=== PATIENT | female | born 1995 | race Caucasian/White ===

== ENCOUNTER 2021-09-05 11:19 | Emergency (ER) | payer OTHER, SELFPAY ==
--- NOTE | ~2021-09-05 | XR_ITS ---
EXAMINATION: XR chest 1V portable INDICATION: Productive cough TECHNIQUE: Portable AP chest at 1143 hours COMPARISON: None available FINDINGS: There are airspace opacities of the right lung base. No pleural effusion or pneumothorax is identified. The cardiomediastinal silhouette is normal. IMPRESSION: 1. Right basilar airspace opacities, likely pneumonia. Reviewed, dictated and finalized at location A.
[2021-09-05 11:28] VITALS: BP 113/71; PULSE 66; RESP 14; TEMP 36.6; O2SAT 99
--- NOTE | 2021-09-05 11:39 | ED.URI ---
HPI - URI/Sore Throat General Chief Complaint: Upper Respiratory Infection <Eryn Henry PA-C - Last Filed: 09/05/21 12:17> Stated Complaint: cough <JAJA Neal Last Filed: 09/05/21 12:17> Time Seen by Provider: 09/05/21 11:31 <JAJA Neal Last Filed: 09/05/21 12:17> Source: patient <JAJA Neal Last Filed: 09/05/21 12:17> Mode of arrival: ambulatory <JAJA Neal Last Filed: 09/05/21 12:17> Limitations: no limitations <JAJA Neal Last Filed: 09/05/21 12:17> History of Present Illness HPI Narrative: This is a 25-year-old female that presents to the emergency department for cold symptoms present over the last week. Reports initially she had a dry cough and rhinorrhea. She was seen at urgent care and had influenza, strep and COVID screens that were all negative. Reports over the last day or 2 the cough is now productive of yellow sputum. She was told if this happened she should come to the ER for possible antibiotics. She was put on a oral steroid by the urgent care. Denies fever, chest pain, or shortness of breath. <JAJA Neal Last Filed: 09/05/21 12:17> Related Data Allergies/Adverse Reactions: Allergies Allergy/AdvReac Type Severity Reaction Status Date / Time amoxicillin [From Augmentin] Allergy Other Verified 09/05/21 12:03 clavulanic acid Allergy Other Verified 09/05/21 12:03 [From Augmentin] Penicillins Allergy Other Verified 09/05/21 12:03 <JAJA Neal Last Filed: 09/05/21 12:17> Review of Systems Review of Systems: CONSTITUTIONAL: Denies fever ENT: Reports rhinorrhea, congestion. Denies sore throat, or otalgia. CARDIOVASCULAR: Denies chest pain RESPIRATORY: Reports cough. Denies dyspnea. <JAJA Neal Last Filed: 09/05/21 12:17> All systems reviewed & are unremarkable except as noted in HPI and below <Eryn Henry PA-C - Last Filed: 09/05/21 12:17> [facility] Past Medical History Medical History: Medical History (Updated 09/05/21 @ 11:59 by Eryn Henry PA-C) History of depression <Eryn Henry PA-C - Last Filed: 09/05/21 12:17> Social History Social History: Social History (Updated 09/05/21 @ 11:41 by Eryn Henry PA-C) Smoking status: Never smoker <Eryn Henry PA-C - Last Filed: 09/05/21 12:17> Exam Narrative: GENERAL: Well-appearing, well-nourished, and in no acute distress. HEAD: Normocephalic, atraumatic. EYES: EOMI. ENT: Nares clear, no rhinorrhea or epistaxis. Mucous membranes moist. Oropharynx without tonsillar hypertrophy exudate or other lesions. Bilateral TMs pearly olson non-bulging NECK: Supple. No adenopathy or masses. CHEST: Clear to auscultation. No respiratory distress. No wheezes rales or rhonchi HEART: Regular rate and rhythm. No murmur heard. Normal peripheral pulses. EXTREMITIES: Normal range of motion. No edema. SKIN: Warm, dry, no rash. NEURO: No focal deficits. Alert and oriented x3. PSYCH: Normal mood and affect <Eryn Henry PA-C - Last Filed: 09/05/21 12:17> Course Vital Signs Vital signs: Vital Signs Temperature 97.9 F 09/05/21 11:28 Pulse Rate 66 09/05/21 11:28 Respiratory Rate 14 09/05/21 11:28 Blood Pressure 113/71 09/05/21 11:28 Pulse Oximetry 99 09/05/21 11:28 Temperature 97.6 F 09/05/21 12:18 Pulse Rate 72 09/05/21 12:18 Respiratory Rate 16 09/05/21 12:18 Blood Pressure 114/78 09/05/21 12:18 Pulse Oximetry 100 09/05/21 12:18 <Eryn Henry PA-C - Last Filed: 09/05/21 12:17> MDM - URI/Sore Throat MDM Narrative Medical decision making narrative: Patient presents to the emergency department for productive cough. She is afebrile and nontoxic-appearing. Lungs are clear on exam. Chest x-ray does show right basilar airspace opacities, likely pneumonia. Patient's oxygen saturation has remained normal on room air.
[2021-09-05 12:18] VITALS: BP 114/78; PULSE 72; RESP 16; TEMP 36.4; O2SAT 100
== END 2021-09-05 12:30 | disposition home or self-care (01) ==
PROVIDERS: Emergency Provider General Practice; PCP Nurse Practitioner Family
DX: J18.9 Pneumonia, unspecified organism (principal)
CPT/HCPCS: 71045; 99283

== ENCOUNTER → 2021-09-11 11:53 | Outpatient (CLI) | payer OTHER, SELFPAY ==
--- NOTE | ~2021-09-11 | XR_ITS ---
EXAMINATION: XR chest 2V DATE: 09/11/2021 12:11 INDICATION: Pneumonia. TECHNIQUE: Frontal and lateral views of the chest were obtained. COMPARISON: Chest single view 09/05/2021 FINDINGS: The chest demonstrates clear lungs without pneumonia, pleural effusion, or pneumothorax. Th e heart size is normal. Surgical clips in the right upper quadrant are likely from cholecystectomy. IMPRESSION: 1. No acute cardiopulmonary disease. Reviewed, dictated and finalized at location B.
== END ==
PROVIDERS: Visit Provider Nurse Practitioner Family
DX: J18.9 Pneumonia, unspecified organism (principal)
CPT/HCPCS: 71046

== ENCOUNTER 2022-03-15 01:17 | Emergency (ER) | payer OTHER, SELFPAY ==
[2022-03-15 01:21] VITALS: BP 115/70; PULSE 86; RESP 18; TEMP 36.4; O2SAT 100
[2022-03-15 01:58] LABS: Basophils Percent Auto 0.4 % (0.2-1.2); Eosinophils Absolute Auto 0.3 K/mm3 (0-0.3); Eosinophils Percent Auto 3.2 % (0-4.4); Hematocrit 38.1 % (37.0-47.0); Hemoglobin 13.1 g/dL (12.0-15.0); Immature Granulocyte Absolute 0.02 K/mm3 (0.00-0.031); Immature Granulocyte Percent A 0.2 % (0-0.5); Lymphocytes Absolute Auto 3.05 K/mm3 (0.9-3.2); Mean Corpuscular HGB Conc 34.4 g/dl (32-36); Mean Corpuscular Hemoglobin 32.5 pg (26-34); Mean Corpuscular Volume 94.5 fl (80-100); Mean Platelet Volume 11.9 fl (7.4-10.4); Monocytes Absolute Auto 0.5 K/mm3 (0.1-0.6); Monocytes Percent Auto 5.2 % (2.6-8.5); Neutrophils Absolute Auto 5.9 K/mm3 (1.3-6.7); Platelet Count Result 170 k/mm3 (150-375); Red Blood Count 4.03 M/mm3 (4.2-5.4); Red Cell Distribution Width 12.6 % (11.5-14.5); White Blood Count 9.8 K/mm3 (4.5-10.0)
[2022-03-15 04:07] VITALS: BP 98/63; PULSE 79; RESP 17; TEMP 36.8; O2SAT 100
[2022-03-15 04:46] LABS: Add Urine Microscopic? YES; Appearance Urine Clear (Clear); Bilirubin Urine Negative (Negative); Blood Urine 3+ (Negative); Color Urine Yellow (Yellow); Glucose Urine UA Negative (Negative); Ketones Urine Negative (Negative); Leukocyte Esterase Ur Negative LEU/UL (Negative); Mucus Urine Rare /lpf; Nitrate Urine Negative (Negative); Protein Urine Negative (Negative); RBC Urine >75 /hpf (0-2); Specific Grav Ur 1.014 (1.001-1.035); Squamous Epithelial Cell Urine Rare /hpf (Few); WBC Urine 0-3 /hpf
--- NOTE | 2022-03-15 04:51 | ED.GENADULT ---
HPI - General Adult General Chief complaint: Vaginal Bleeding Stated complaint: vaginal bleeding 14 weeks Time Seen by Provider: 03/15/22 04:08 History of Present Illness HPI narrative: This is a 14 week presenting to the ED. last night the patient noticed some whiteness in the vaginal area. When she went to the restroom she noticed some pink tinge to her underwear. She then went back to bed. When she woke this morning again she noticed that there was some spotting in her underwear. She denies any abdominal pain or cramping. She denies any vaginal discharge or urinary symptoms. The patient is concerned she is having a miscarriage. Related Data Home Medications Medication Instructions Recorded Confirmed fluoxetine 10 mg capsule mg 03/15/22 Allergies Allergy/AdvReac Type Severity Reaction Status Date / Time amoxicillin [From Augmentin] Allergy Other Verified 03/15/22 01:23 clavulanic acid Allergy Other Verified 03/15/22 01:23 [From Augmentin] Penicillins Allergy Other Verified 03/15/22 01:23 enoxaparin [From Lovenox] AdvReac Rash Verified 03/15/22 04:33 Review of Systems Review of Systems: CONSTITUTIONAL: Denies night sweats. EYES: No eye pain ENT: Denies rhinorrhea CARDIOVASCULAR: Denies palpitations RESPIRATORY: Denies hemoptysis GASTROINTESTINAL: Denies hematemesis GENITOURINARY: Denies hematuria. SKIN: Denies rash MUSCULOSKELETAL: Denies myalgia. NEUROLOGIC: Denies weakness. PSYCHIATRIC: Denies delusions PMFSH Past Medical History Medical History (Updated 03/15/22 @ 04:57 by Chu Patton MD) delivery delivered History of depression Social History Social History Smoking status: Never smoker Exam Narrative: APPEARANCE: No apparent distress. Head atraumatic. EYES: PERRLA/EOMI, NOSE: Normal no drainage NECK: Supple, Trachea midline RESPIRATORY: CTAB, No increased work of breathing. CARDIOVASCULAR: S1S2 appreciated ABDOMINAL: Soft, nontender, nondistended, MUSCULOSKELETAl: No obvious deformities NEURO: Alert. Moving 4/4 extremities SKIN:: Warm, dry. Normal color PSYCHIATRIC: Normal affect Point of care dumpman ultrasound revealed a fetus inside the uterus. heart rate was approximately 150-180. Pelvic exam revealed a closed cervical os with no ron bleeding in the vaginal vault. Course Vital Signs Vital signs: Vital Signs Temperature 97.5 F L 03/15/22 01:21 Pulse Rate 86 03/15/22 01:21 Respiratory Rate 18 03/15/22 01:21 Blood Pressure 115/70 03/15/22 01:21 Pulse Oximetry 100 03/15/22 01:21 Temperature 98.2 F 03/15/22 04:07 Pulse Rate 79 03/15/22 04:07 Respiratory Rate 17 03/15/22 04:07 Blood Pressure 98/63 L 03/15/22 04:07 Pulse Oximetry 100 03/15/22 04:07 Medical Decision Making MDM Narrative Medical decision making narrative: this is a 14 week woman presenting with very mild vaginal bleeding. Point of care ultrasound revealed a live fetus inside the uterus. Pelvic exam revealed a closed cervical os. Basic lab work was unremarkable. Patient's urinalysis did show greater than 75 red blood cells per high-power field but no evidence of infection. At this time patient has been given return precautions for increased vaginal bleeding and miscarriage. She has been instructed to follow-up with her OBGYN. Vital Signs Vital Signs: Vital Signs Temperature 97.5 F L 03/15/22 01:21 Pulse Rate 86 03/15/22 01:21 Respiratory Rate 18 03/15/22 01:21 Blood Pressure 115/70 03/15/22 01:21 Pulse Oximetry 100 03/15/22 01:21 Temperature 98.2 F 03/15/22 04:07 Pulse Rate 79 03/15/22 04:07 Respiratory Rate 17 03/15/22 04:07 Blood Pressure 98/63 L 03/15/22 04:07 Pulse Oximetry 100 03/15/22 04:07 Lab Data Result diagrams: 03/15/22 01:44 Labs: Lab Results 03/15/22 03/15/22 03/15/22
== END 2022-03-15 05:10 | disposition home or self-care (01) ==
PROVIDERS: Emergency Provider Emergency Medicine; PCP Nurse Practitioner Family
DX: O20.0 Threatened abortion (principal); O99.342 Other mental disorders complicating pregnancy, second trimester; F32.A Depression, unspecified; Z3A.14 14 weeks gestation of pregnancy
CPT/HCPCS: 36415; 81001; 84702; 85025; 85461; 99284

== ENCOUNTER 2022-06-25 18:02 | Observation (INO) | payer OTHER, SELFPAY ==
[2022-06-25] VITALS (40 sets, daily range): BP systolic 106–114; BP diastolic 60–70; PULSE 39–100; TEMP 36.8; O2SAT 86–100; BMI 34.1
--- NOTE | 2022-06-25 19:06 | OBADM ---
This patient, Kaylan Frederick, admitted to the OB room OB Post 117 for observation. Patient/family oriented to hospital policies and general routines including ID bracelet, bed and alarms, visiting hours, pain management, procedures, bathroom and other care routines, personal items, smoking policy, room service/diet, and visiting hours. Patient/Family are encouraged to report perceived risks to care and to ask questions if they do not understand what they are told or what they should do.
[2022-06-25 19:16] LABS: Basophils Percent Auto 0.2 % (0.2-1.2); Eosinophils Percent Auto 0.5 % (0-4.4); Hematocrit 35.2 % (37.0-47.0); Hemoglobin 11.7 g/dL (12.0-15.0); Immature Granulocyte Absolute 0.03 K/mm3 (0.00-0.031); Immature Granulocyte Percent A 0.4 % (0-0.5); Lymphocytes Absolute Auto 1.88 K/mm3 (0.9-3.2); Lymphocytes Percent Auto 23.1 % (18.3-44.2); Mean Corpuscular HGB Conc 33.2 g/dl (32-36); Mean Corpuscular Volume 99.2 fl (80-100); Mean Platelet Volume 11.1 fl (7.4-10.4); Monocytes Absolute Auto 0.4 K/mm3 (0.1-0.6); Monocytes Percent Auto 4.8 % (2.6-8.5); Neutrophils Absolute Auto 5.8 K/mm3 (1.3-6.7); Platelet Count Result 158 k/mm3 (150-375); Red Blood Count 3.55 M/mm3 (4.2-5.4); Red Cell Distribution Width 13.9 % (11.5-14.5); White Blood Count 8.2 K/mm3 (4.5-10.0)
[2022-06-25 19:27] LABS: Alanine Aminotransferase 14 U/L (6-35); Albumin Level 3.3 g/dL (3.5-5.1); Alkaline Phosphatase 85 U/L (38-126); Anion Gap 6 mmol/L (8-16); Aspartate Amino Transferase 29 U/L (14-36); Bilirubin,Total 0.7 mg/dL (0.2-1.3); Blood Urea Nitrogen 8 mg/dL (7-17); Calcium 8.4 mg/dL (8.4-10.2); Carbon Dioxide 24 mmol/L (22-30); Chloride 106 mmol/L (98-107); Estimated CRCL calculation 169 ml/min; Estimated Glomerular Filt Rate > 60; Glucose 76 mg/dL (65-110); Potassium 4.1 mmol/L (3.4-5.0); Sodium 136 mmol/L (137-145); Uric Acid 4.8 mg/dL (2.5-7.5)
[2022-06-25] MEDS: BELLADONNA ALK/PHENOB ELIX 10 ML, MAG HYDROX/ALUMINUM HYD/SIMETH 30 ML, LIDOCAINE HCL 2... PO (19:27)
[2022-06-25 19:34] LABS: Bacteria Urine Trace /hpf; Mucus Urine Rare /lpf; RBC Urine 0-2 /hpf (0-2); Squamous Epithelial Cell Urine Occasional /hpf (Few); WBC Urine 0-3 /hpf (0-3)
[2022-06-25 19:35] LABS: Appearance Urine Clear (Clear); Bilirubin Urine Negative (Negative); Blood Urine Negative (Negative); Color Urine Yellow (Yellow); Glucose Urine UA Negative (Negative); Ketones Urine Trace mg/dL (Negative); Leukocyte Esterase Ur Negative LEU/UL (NEGATIVE); Nitrate Urine Negative (Negative); Protein Urine Negative (Negative)
[2022-06-25 19:36] LABS: Add Urine Microscopic? YES
[2022-06-25 22:52] LABS: Creatinine Urine 64.8 mg/dL
[2022-06-25 23:00] LABS: Total Protein Urine Random < 5 mg/dL; Ur Ttl Prot Creatinine Ratio < 0.08 mg/mg (0-0.20)
--- NOTE | 2022-07-15 11:51 | PM.OBTRLD ---
OB - Triage/Final Diagnosis Visit Information Comments/Additional reasons for admission: I have assessed the risk for this patient, Kaylan Frederick, and determined that she would benefit from observation care. Evaluation Laboratory results: Laboratory Tests 06/25/22 06/25/22 06/25/22 18:49 18:49 18:49 WBC 8.2 RBC 3.55 L Hgb 11.7 L Hct 35.2 L MCV 99.2 MCH 33.0 MCHC 33.2 RDW 13.9 Plt Count 158 MPV 11.1 H Immature Gran % (Auto) 0.4 Neut % (Auto) 71.0 Lymph % (Auto) 23.1 [place] % (Auto) 4.8 Eos % (Auto) 0.5 Baso % (Auto) 0.2 Lymph # (Auto) 1.88 [place] # (Auto) 0.4 Eos # (Auto) 0.0 Baso # (Auto) 0.0 Abs Immat Gran (auto) 0.03 Absolute Neuts (auto) 5.8 Absolute Nucleated RBC 0.0 Nucleated RBC % 0.0 % Immature Plt Fraction 8.0 Sodium 136 L Potassium 4.1 Chloride 106 Carbon Dioxide 24 Anion Gap 6 L BUN 8 Creatinine 0.40 L Estim Creat Clear Calc 169 Estimated GFR > 60 Glucose 76 Uric Acid 4.8 Calcium 8.4 Total Bilirubin 0.7 AST 29 ALT 14 Alkaline Phosphatase 85 Total Protein 6.0 L Albumin 3.3 L Urine Color Yellow Urine Appearance Clear Urine pH 6.0 Ur Specific [place] 1.010 Urine Protein Negative Urine Glucose (UA) Negative Urine Ketones Trace Ur Blood (Man) Negative Urine Nitrate Negative Urine Bilirubin Negative Urine Urobilinogen 2.0 H Ur Leukocyte Esterase Negative Urine RBC 0-2 Urine WBC 0-3 Ur Squamous Epith Cells Occasional Urine Bacteria Trace Urine Mucus Rare U Random Total Protein Urine Creatinine Protein/Creat Ratio 2 06/25/22 06/25/22 18:49 18:52 WBC RBC Hgb Hct MCV MCH MCHC RDW Plt Count MPV Immature Gran % (Auto) Neut % (Auto) Lymph % (Auto) [place] % (Auto) Eos % (Auto) Baso % (Auto) Lymph # (Auto) [place] # (Auto) Eos # (Auto) Baso # (Auto) Abs Immat Gran (auto) Absolute Neuts (auto) Absolute Nucleated RBC Nucleated RBC % % Immature Plt Fraction Sodium Potassium Chloride Carbon Dioxide Anion Gap BUN Creatinine Estim Creat Clear Calc Estimated GFR Glucose Uric Acid Cancelled Calcium Total Bilirubin AST ALT Alkaline Phosphatase Total Protein Albumin Urine Color Urine Appearance Urine pH Ur Specific [place] Urine Protein Urine Glucose (UA) Urine Ketones Ur Blood (Man) Urine Nitrate Urine Bilirubin Urine Urobilinogen Ur Leukocyte Esterase Urine RBC Urine WBC Ur Squamous Epith Cells Urine Bacteria Urine Mucus U Random Total Protein < 5 Urine Creatinine 64.8 Protein/Creat Ratio 2 < 0.08 Final Diagnosis (1) Abdominal pain: Code(s): R10.9 - Unspecified abdominal pain Status: Acute
== END 2022-06-25 21:03 | disposition home or self-care (01) ==
PROVIDERS: Admitting Provider Obstetrics & Gynecology; PCP Nurse Practitioner Family; Visit Provider Obstetrics & Gynecology
DX: O26.893 Other specified pregnancy related conditions, third trimester (principal); R10.9 Unspecified abdominal pain; Z3A.28 28 weeks gestation of pregnancy
CPT/HCPCS: 36415; 80053; 81001; 82570; 84156; 84550; 85025; 85055; 87086; A9270; G0378; G0379

== ENCOUNTER 2022-09-02 10:22 | Outpatient (RCR) | payer OTHER, SELFPAY ==
--- NOTE | ~2022-09-02 | US_ITS ---
EXAMINATION: US OB limited w BPP DATE: 09/02/2022 12:23 CDT INDICATION: Decreased movements. TECHNIQUE: Real-time transabdominal obstetric ultrasound. FINDINGS: No prior studies for comparison. There is a single living fetus in vertex presentation. The placenta is on the left laterally without placenta previa. cardiac activity and movement is noted with a heart rate of 137 beats per minute. A FI is normal measuring 13.3 cm. Biophysical profile: breathin of 2 movement: 2 of 2 tone: 2 of 2 Amniotic flud pocket: 2 of 2 Total score: 8 of 8 IMPRESSION: 1. Single living intrauterine in vertex presentation. 2: Total biophysical profile score of 8/8. 3: Normal CLARITA measures 13.3 cm. Reviewed, dictated and finalized at location B.
[2022-09-02 12:32] VITALS: BP 108/63; PULSE 71
== END 2022-10-19 18:23 | disposition home or self-care (01) ==
LOC: ANHOBOP 10:22
PROVIDERS: PCP Nurse Practitioner Family; Visit Provider Obstetrics & Gynecology
DX: O36.8130 Decreased fetal movements, third trimester, not applicable or unspecified (principal); Z3A.38 38 weeks gestation of pregnancy
CPT/HCPCS: 59025; 76815; 76819

== ENCOUNTER 2022-09-05 09:09 | Outpatient (CLI) | payer OTHER, SELFPAY ==
[2022-09-05 10:49] LABS: Hematocrit 35.8 % (37.0-47.0); Hemoglobin 11.5 g/dL (12.0-15.0); Mean Corpuscular HGB Conc 32.1 g/dl (32-36); Mean Corpuscular Hemoglobin 31.8 pg (26-34); Mean Corpuscular Volume 98.9 fl (80-100); Platelet Count Result 132 k/mm3 (150-375); Red Blood Count 3.62 M/mm3 (4.2-5.4); White Blood Count 6.8 K/mm3 (4.5-10.0)
[2022-09-07 09:40] LABS: Rapid Plasma Reagin Non-Reactive (NonReactive)
== END 2022-09-05 09:10 | disposition home or self-care (01) ==
LOC: ANHLAB 09:11
PROVIDERS: PCP Nurse Practitioner Family; Visit Provider Obstetrics & Gynecology
DX: Z01.818 Encounter for other preprocedural examination (principal)
CPT/HCPCS: 36415; 85027; 86592; 86850; 86900; 86901

== ENCOUNTER 2022-09-07 05:29 | Inpatient (IN) | payer OTHER, SELFPAY ==
[2022-09-07] VITALS (52 sets, daily range): BP systolic 89–116; BP diastolic 43–81; PULSE 57–135; RESP 14–20; TEMP 36.4–36.6; O2SAT 80–100; BMI 36.6
--- NOTE | 2022-09-07 05:55 | LDADM ---
This patient, Kaylan Frederick, was admitted to Labor/Delivery/Recovery 120 on 09/07/22 at 05:29. Plans for labor, pain management and were discussed with patient. Patient/family oriented to hospital policies and general routines including ID bracelet, bed and alarms, visiting hours, pain management, procedures, bathroom and other care routines, personal items, smoking policy, room service/diet and guest tray routines, security routines, and visiting hours. Patient/Family are encouraged to report perceived risks to care and to ask questions if they do not understand what they are told or what they should do. See OBIX for further documentation.
[2022-09-07] MEDS: LACTATED RINGERS 1,000 ML 125 ML IV CONT ×2 (06:15→07:30)
--- NOTE | 2022-09-07 06:49 | P.PNAN_ITS ---
Anes - Initial Pre Proc Eval Procedure: Operation Date: 09/07/22 07:30 Proposed Procedures p Section - Mar Kirk MD Date/Time: 09/07/22 06:49 Surgeon: Mar Kirk MD Pre Op Diagnosis: C/S Patient Data Age: 26 Gender: F Height: 1.55 m Weight: 88 kg Last Vital Signs Pulse 86 09/07/22 06:46 BP 110/72 09/07/22 06:46 Allergies Allergy/AdvReac Type Severity Reaction Status Date / Time amoxicillin [From Augmentin] Allergy Other Verified 08/14/22 12:39 clavulanic acid Allergy Other Verified 08/14/22 12:39 [From Augmentin] Penicillins Allergy Other Verified 08/14/22 12:39 enoxaparin [From Lovenox] AdvReac Rash Verified 08/14/22 12:39 Home Medications Medication Instructions Recorded Confirmed Type albuterol sulfate 90 mcg/actuation 2 inh inhalation Q4-6H PRN 09/05/21 09/02/22 Rx breath activated powder shortness of breath or wheezing #1 inhaler,sensor ea escitalopram oxalate 10 mg tablet 10 mg PO DAILY 08/14/22 09/02/22 History (Lexapro) ferrous sulfate 325 mg (65 mg 325 mg PO DAILY 08/14/22 09/02/22 History iron) tablet prenat.vits,cheri,glf-xbrf-ifjse 1 tablet PO DAILY 08/14/22 09/02/22 History Patient hx anesthesia problems: none Family hx anesthesia problems: none Results Review: All pre-operative results and documents have been reviewed as part of the pre- operative evaluation. [facility] Past Medical History Medical History (Updated 09/07/22 @ 06:49 by Glenn Leigh DO) Asthma delivery delivered History of depression Surgical History Surgical History (Updated 09/07/22 @ 06:49 by Glenn Leigh DO) History of sleeve gastrectomy Family History Family History (Updated 08/14/22 @ 12:42 by Alessia Gan RN) Other Patient denies significant medical history Social History Social History Smoking status: Never smoker Second hand tobacco smoke exposure: No Substance use: never Lack of Transportation: No Lack of Food: Never True Current Housing: I Have Housing Concerned About Future Housing: No Difficulty Paying Gas/Electric Bills: No Difficulty Paying for Meds: No Currently Unemployed: No Education: Grade School Difficulty w/ Childcare or Family Care: No Spiritual care concerns: No Anes - Eval Final PreProcedure Day of Procedure 09/07/22 06:49 Patient weight: obese Heart: regular rate and rhythm Lungs: clear to auscultation and normal air movement Airway: Mallampati scale class II Neurological: alert and oriented Last oral intake: >/= 8 hours ASA classification: III Emergent: no Anesthetic plan: proceed Anesthesia type and monitoring: regional spinal and standard monitoring Results Review: All pre-operative results and documents have been reviewed as part of the pre- operative evaluation. Informed Consent: The patient's anesthetic plan and its attendant risks and benefits were discussed with the patient/family/POA. Questions were solicited and answers provided to the satisfaction of the patient/family/POA.
--- NOTE | 2022-09-07 07:16 | PM.IMHP ---
H&P: HPI History of Present Illness Date/Time: 09/07/22 07:16 Chief Complaint: R CS Narrative: Kaylan is a 26yo at 39.1 for a repeat CS. her last in [place] she had a large wound infection and dehiscence post op. uncomplicated except by depression/anxiety on lexapro, pt wants to increase after delivery. Review of Systems Review of Systems: All systems reviewed & are unremarkable except as noted in HPI and below PMFSH Past Medical History Medical History (Updated 09/07/22 @ 06:49 by Glenn Leigh DO) Asthma delivery delivered History of depression Surgical History Surgical History (Updated 09/07/22 @ 07:19 by Mar Kirk MD) History of sleeve gastrectomy Family History Family History (Updated 08/14/22 @ 12:42 by Alessia Gan RN) Other Patient denies significant medical history Social History Social History Smoking status: Never smoker Second hand tobacco smoke exposure: No Substance use: never Lack of Transportation: No Lack of Food: Never True Current Housing: I Have Housing Concerned About Future Housing: No Difficulty Paying Gas/Electric Bills: No Difficulty Paying for Meds: No Currently Unemployed: No Education: Grade School Difficulty w/ Childcare or Family Care: No Spiritual care concerns: No Meds Home Medications and Allergies Home Medications Medication Instructions Recorded Confirmed Type albuterol sulfate 90 mcg/actuation 2 inh inhalation Q4-6H PRN 09/05/21 09/02/22 Rx breath activated powder shortness of breath or wheezing #1 inhaler,sensor ea escitalopram oxalate 10 mg tablet 10 mg PO DAILY 08/14/22 09/02/22 History (Lexapro) ferrous sulfate 325 mg (65 mg 325 mg PO DAILY 08/14/22 09/02/22 History iron) tablet prenat.vits,cheri,gzf-kghv-xfzhe 1 tablet PO DAILY 08/14/22 09/02/22 History Allergies Allergy/AdvReac Type Severity Reaction Status Date / Time amoxicillin [From Augmentin] Allergy Other Verified 08/14/22 12:39 clavulanic acid Allergy Other Verified 08/14/22 12:39 [From Augmentin] Penicillins Allergy Other Verified 08/14/22 12:39 enoxaparin [From Lovenox] AdvReac Rash Verified 08/14/22 12:39 Vital Signs Vital Signs - 24 hr 09/07/22 06:02 09/07/22 06:16 09/07/22 06:31 Pulse Rate 101 H 88 81 Blood Pressure 112/68 105/68 99/64 L 09/07/22 06:46 09/07/22 07:01 Pulse Rate 86 76 Blood Pressure 110/72 113/61 Exam Const: General: no acute distress Resp: Effort & Inspection: normal respiratory effort Auscultation: clear to auscultation bilaterally Cardio: Rate: regular rate Rhythm: regular rhythm GI: GI Palp: Yes Soft to palpation Extrem: General: normal to inspection Assessment and Plan Assessment and plan (1) History of delivery: Code(s): Z98.891 - History of uterine scar from previous surgery Status: Acute Plan FHT category 1 will proceed with R CS. Pt aware scarring and increased risk of injury to organs with infection last time.
--- NOTE | 2022-09-07 07:27 | WPDHPUPDATE1 ---
History and Physical Update Update Date/Time: 09/07/22 07:27 History and Physical has been reviewed, including an updated exam of the patient. There are NO changes in the patient's condition. Risks, benefits, and alternatives have been discussed and questions answered. Patient agrees to proceed with procedure.
[2022-09-07] MEDS: CLINDAMYCIN 900 MG/D5W 50 ML 900 MG/50 ML PIGGYBACK 50 MG IVPB (08:05)
--- NOTE | 2022-09-07 09:00 | P.PCNOB_ITS ---
OB - Delivery Note Procedure Delivery date: 09/07/22 Procedure: Procedures Operation Date: 09/07/22 07:30 <No data on this case meets the specified criteria> Repeat Low transverse section Events: Previous Delivery Route of delivery: Specimen: Yes (placenta) Quantitative Blood Loss (ml): 215 Anesthesia type: Spinal Disposition: Floor Complications: none Narrative: PreOp Diagnosis: previous CS x2, IUP 39.1 Post Op Diagnosis: same The patient was taken to the OR and received spinal anesthesia. She was placed in dorsal supine position with left lateral tilt. SCDs and pablo were placed. She was prepped and draped in the normal sterile fashion. A Pfannensteil skin incision was made and carried through to the underlying layer of fascia. The fascia was incised in the midline and then extended laterally using Beasley scissors. The muscles were in the midline and the peritoneum was entered bluntly. The peritoneal incision was extended inferiorly and superiorly with care to avoid the bladder. The bladder blade was then inserted, the vesicouterine peritoneum was grasped, incised with Metzenbaum scissors, and a bladder flap created. The bladder blade was reinserted. A low transverse uterine incision was made with a scalpel and extended bluntly. AROM was performed and fluid was noted to be clear. The head was delivered, followed by the remainder of the baby. The baby's oropharynx was suctioned. After 30 seconds, the cord was clamped and cut and the was handed off. Cord blood was obtained and the placenta was then removed manually. The uterus was exteriorized. A moist lap sponge was used to curette the endometrium. The uterine incision was then closed with one layer of 0-Vicryl in a running, locking fashion. Good hemostasis was noted. The posterior cul de sac was irrigated with normal saline and cleared of all clot and debris. The uterus was returned to the abdomen. Both lateral gutters were then irrigated. The rectus muscles were inspected and found to be hemostatic. The fascia was reapproximated using 0-Vicryl in running fashion. The subcutaneous tissue was irrigated with normal saline and made hemostatic with Bovie electrocautery. The subcutaneous tissue was reapproximated with a layer of running 2-0 plain gut. The skin was then closed with absorbable sean. Steri strips and a bandage were applied. The uterus was evacuated. The patient tolerated the procedure very well. All counts were correct. She was taken to the recovery room in good condition. [place] Baby Date of : 09/07/22 Time of : 08:14 Weeks of gestation at delivery: 39 gender: Female Weight (pounds): 6 Weight (ounces): 11 presentation: vertex Placenta delivery description: Manual Removal Cord Vessel Description: 3 Vessels and Delayed Cord Clamping score one minute: 9 score five minutes: 9
[2022-09-07] MEDS: OXYTOCIN 30 UNITS/NS 500 ML 30 UNITS/500 ML BAG 125 UNITS IV CONT (09:50)
[2022-09-07] MEDS: KETOROLAC 30 MG/ML VIAL (*BKC) IV PUSH ×2 (12:22→18:54)
[2022-09-07] MEDS: DEXTROSE 5%/0.45% SOD CHL 1,000 ML 125 ML IV CONT (14:13)
[2022-09-07] MEDS: HYDROcodone/acetaminophen (*CRX) 5-325 MG TABLET 1 TAB PO ×2 (14:59→15:52)
[2022-09-07] MEDS: DOCUSATE SODIUM 100 MG CAPSULE PO (14:59)
[2022-09-07] MEDS: ONDANSETRON INJ 4 MG/2 ML VIAL IV PUSH (15:03)
[2022-09-07] MEDS: HYDROcodone/acetaminophen (*CRX) 10-325 MG TABLET 1 TAB PO (20:16)
[2022-09-07] MEDS: ESCITALOPRAM OXALATE 10 MG TABLET 20 MG PO (20:30)
[2022-09-08] MEDS: HYDROcodone/acetaminophen (*CRX) 10-325 MG TABLET 1 TAB PO ×6 (03:10→22:07)
[2022-09-08] MEDS: KETOROLAC 30 MG/ML VIAL (*BKC) IV PUSH (03:11)
[2022-09-08 03:15] VITALS: BP 112/55; PULSE 67; RESP 16; TEMP 36.4; O2SAT 100
[2022-09-08 04:51] LABS: Basophils Percent Auto 0.3 % (0.2-1.2); Eosinophils Absolute Auto 0.1 K/mm3 (0-0.3); Eosinophils Percent Auto 0.9 % (0-4.4); Hematocrit 31.9 % (37.0-47.0); Hemoglobin 10.3 g/dL (12.0-15.0); Immature Granulocyte Absolute 0.02 K/mm3 (0.00-0.031); Immature Granulocyte Percent A 0.3 % (0-0.5); Lymphocytes Absolute Auto 1.21 K/mm3 (0.9-3.2); Lymphocytes Percent Auto 18.6 % (18.3-44.2); Mean Corpuscular HGB Conc 32.3 g/dl (32-36); Mean Corpuscular Hemoglobin 31.7 pg (26-34); Mean Corpuscular Volume 98.2 fl (80-100); Mean Platelet Volume 11.9 fl (7.4-10.4); Monocytes Absolute Auto 0.5 K/mm3 (0.1-0.6); Monocytes Percent Auto 7.7 % (2.6-8.5); Neutrophils Absolute Auto 4.7 K/mm3 (1.3-6.7); Neutrophils Percent Auto 72.2 % (45.5-73.1); Platelet Count Result 106 k/mm3 (150-375); Red Blood Count 3.25 M/mm3 (4.2-5.4); Red Cell Distribution Width 12.7 % (11.5-14.5); White Blood Count 6.5 K/mm3 (4.5-10.0)
[2022-09-08] MEDS: MULTIVIT/MIN/PREN/FOL AC/IRON TABLET 1 TAB PO (07:32)
[2022-09-08] MEDS: DOCUSATE SODIUM 100 MG CAPSULE PO ×2 (07:32→14:55)
[2022-09-08] MEDS: SIMETHICONE 80 MG TAB.CHEW PO (07:33)
--- NOTE | 2022-09-08 07:49 | PM.OBPNVD ---
OB - PN: Subj Subjective Date/time seen: 09/08/22 07:49 Patient comments: no complaints baby status: doing well [place] feeding status: exclusively breast feeding Narrative: POD 1 from primary CS. Doing well. Normal lochia. Eating, ambulating, pablo out. Struggling with nursing some. OB - PN: Obj Data Labs 09/08/22 04:33 Labs: Laboratory Results - last 24 hr 09/08/22 04:33 WBC 6.5 RBC 3.25 L Hgb 10.3 L Hct 31.9 L MCV 98.2 MCH 31.7 MCHC 32.3 RDW 12.7 Plt Count 106 L MPV 11.9 H Immature Gran % (Auto) 0.3 Neut % (Auto) 72.2 Lymph % (Auto) 18.6 [place] % (Auto) 7.7 Eos % (Auto) 0.9 Baso % (Auto) 0.3 Lymph # (Auto) 1.21 [place] # (Auto) 0.5 Eos # (Auto) 0.1 Baso # (Auto) 0.0 Abs Immat Gran (auto) 0.02 Absolute Neuts (auto) 4.7 Absolute Nucleated RBC 0.0 Nucleated RBC % 0.0 OB - PN A/P Plan day: 1 Plan: routine care Comments: consult today Time Spent With Patient Time: Total time spent is greater than 50% in coordination of care (as documented) at patient's floor/unit and/or counseling patient: Exam Narrative: NAD abdomen soft, appropriately tender, incision bandaged Extremities nontender with 1+ edema
[2022-09-08 07:50] VITALS: BP 94/46; PULSE 71; RESP 16; TEMP 36.9; O2SAT 97
--- NOTE | 2022-09-08 13:45 | PC.NURSE ---
Patient instructed on viewing the discharge video Mother & Baby Care, The First Two Weeks . Patient was given the opportunity and encouraged to ask questions. Patient verbalized understanding of information shared and has been given the mother/baby guide for home reference.
--- NOTE | 2022-09-08 14:11 | PC.NURSE ---
[id number] Introductions were made, then consulted with patient to assess needs related to . Mother led the conversation with her?plans to feed?her infant and the?experience so far. Resources provided for inpatient and outpatient services with the feeding sheet, mom/baby guide and name written on the white board. Mother voiced understanding of information and will call if there is a request for assistance. RN encouraged [id number] and stimulating infant to breastfeed. Reported to the primary RN. [id number] Mother states she independently breastfed her infant on the left breast using the football positioning. Mother verbalizes she is able to independently latch with appropriate positioning/alignment. She denies any nipple discomfort and is responsively . is currently meeting outcomes for weight, output, jaundice and feeding frequencies of 8-12 times in 24 hours. Mother declines any additional assistance/education at this time. Mother is encouraged to call for assistance if her infant doesn?t latch or there is discomfort with latching. Mother voiced understanding of information shared and the mom reminded of the mom/baby guide for an additional resource. Reported to the primary RN.
[2022-09-08 19:00] VITALS: BP 122/77; PULSE 66; RESP 16; TEMP 36.2
[2022-09-08] MEDS: ESCITALOPRAM OXALATE 10 MG TABLET 20 MG PO (19:00)
[2022-09-09] MEDS: HYDROcodone/acetaminophen (*CRX) 10-325 MG TABLET 1 TAB PO ×4 (01:38→21:24)
--- NOTE | 2022-09-09 07:52 | P.PNOB_ITS ---
OB - PN: Subj Subjective Date/time seen: 09/09/22 07:52 Patient comments: incisional pain [place] baby status: nursing well feeding status: exclusively breast feeding Narrative: Nursing going much better but pain much worse. Cannot have ibuprofen. SOme back pain also. OB - PN: Obj Data Labs 09/08/22 04:33 OB - PN A/P Plan day: 2 Plan: routine care Comments: ice to incision, continue norco likely home tomorrow mood good, increased lexapro to 20mg Time Spent With Patient Time: Total time spent is greater than 50% in coordination of care (as documented) at patient's floor/unit and/or counseling patient: Exam Narrative: NAD abdomen soft, appropriately tender, incision CDI Extremities nontender with 1+ edema
[2022-09-09 07:56] VITALS: BP 107/79; PULSE 74; RESP 18; TEMP 36.4; O2SAT 98
[2022-09-09] MEDS: DOCUSATE SODIUM 100 MG CAPSULE PO ×2 (08:00→21:25)
[2022-09-09] MEDS: MULTIVIT/MIN/PREN/FOL AC/IRON TABLET 1 TAB PO (08:00)
[2022-09-09] MEDS: SIMETHICONE 80 MG TAB.CHEW PO (08:00)
--- NOTE | 2022-09-09 08:36 | PC.NURSE ---
On 09/09/22, the student, Rosa Bowden, provided care and completed [employer] documentation on this patient. I have reviewed the student's documentation and agree with the findings.
[2022-09-09 08:45] VITALS: PULSE 74; RESP 18; O2SAT 98
--- NOTE | 2022-09-09 15:41 | PC.NURSE ---
Report from Primary RN this morning that mother is , pumping and supplementing with Enfamil.
[2022-09-09 16:14] VITALS: PULSE 74; RESP 18; O2SAT 98
[2022-09-09 20:00] VITALS: BP 92/42; PULSE 69; RESP 16; TEMP 36.7; O2SAT 98
[2022-09-09] MEDS: ESCITALOPRAM OXALATE 10 MG TABLET 20 MG PO (21:24)
[2022-09-10] MEDS: HYDROcodone/acetaminophen (*CRX) 5-325 MG TABLET 1 TAB PO (01:04)
[2022-09-10] MEDS: HYDROcodone/acetaminophen (*CRX) 10-325 MG TABLET 1 TAB PO ×3 (04:55→13:24)
[2022-09-10 08:00] VITALS: BP 93/57; PULSE 67; RESP 18; TEMP 36.2; O2SAT 98
--- NOTE | 2022-09-10 08:03 | PM.OBPNVD ---
OB - PN: Subj Subjective Date/time seen: 09/10/22 08:03 Patient comments: no complaints, pain well controlled, tolerating diet and flatus present baby status: doing well OB - PN: Obj Data Labs 09/08/22 04:33 OB - PN A/P Assessment and Plan (1) delivery delivered: Code(s): O82 - Encounter for delivery without indication Status: Acute Plan day: 2 Plan: routine care and discharge home (Follow up in 1 week) Time Spent With Patient Time: Total time spent is greater than 50% in coordination of care (as documented) at patient's floor/unit and/or counseling patient: Time with patient: less than 15 minutes Review of Systems Review of Systems: All systems reviewed & are unremarkable except as noted in HPI and below Exam Narrative: Fundus firm. Vaginal flow controlled. Incision dry and intact. Negative homans. No redness, warmth, or pain of lower ext. Const: General: comfortable Chest: Breast/axilla inspection: normal inspection of the breasts Resp: Effort & Inspection: normal respiratory effort Auscultation: clear to auscultation bilaterally Cardio: Rate: regular rate GI: GI Palp: Yes Soft to palpation Psych: Appearance: grossly normal Affect: normal affect Attitude: cooperative Thought content: Yes Normal thought content present Judgement: Good judgement present (Psych)
--- NOTE | 2022-09-10 08:05 | PM.OBDSVD ---
DS: Admitting Diagnosis Discharge Date 09/10/22 Admitting Diagnosis DS: Discharge Diagnosis Discharge Diagnosis (1) delivery delivered: Code(s): O82 - Encounter for delivery without indication Status: Acute OB - DS: Summary OB Procedures : None OB Procedures Intrapartum: OB Procedures: : None Peripartum Data Procedures: Procedures Operation Date: 09/07/22 07:30 Actual Procedure Side Surgeon p Section Mar Kirk MD Time Spent with Patient Time attestation: Total time spent providing and/or coordinating discharge services: Discharge Plan Discharge Attending physician on discharge: Mar Kirk Discharging Clinician: Mar Kirk Anticipated Discharge Date/Time: 09/10/22 07:58 Patient Disposition: Home, Self-Care Activity: may shower, may drive after 2 weeks and pelvic rest Diet: regular Discharge Instructions: Education: Mom and Baby Guide Given to: Mother Follow-Up: Call your delivering provider's office for an appointment to be seen in: 1 Week Mom and baby should come to the [facility] for the follow-up appointment. Appointment Date/Time: September 11, 2022 at 10:00 am What to expect at your follow-up visit: Blood Pressure Check Physical Assessment Call [phone] if you are unable to keep your appointment time. BREAST CARE: * Wear a snug supportive bra. * For engorgement discomfort: Breast Feeding: * Apply warm moist washcloths * Express milk as needed to relieve engorgement * Wear loose clothing Bottle Feeding: * May apply ice packs * For sore nipples: * Identify correct latch-on * Apply warm moist washcloths before and after nursing * Air dry nipples after nursing * May apply Lansinoh cream to nipples ABDOMINAL INCISION: (if applicable) * Do NOT use lotions for powders on your incision * When showering, allow soap and water to run over the incision, gently wash incision *Dry incision thoroughly with a clean dry towel EPISIOTOMY/PERINEAL CARE: * Until bleeding stops, use your flower bottle after urinating * Change your pad frequently throughout the day * No tub baths until seen by your physician - You may shower ACTIVITY: * Rest as much as possible. * Do not exercise or lift anything heavier than your baby (such as laundry or other children.) for about two weeks. * Avoid stairs or driving as much as possible for 2 weeks or while taking narcotic pain medication. * Do not put anything into the vagina. No douching, tampons, or sexual activity until seen by physician. NOTIFY PHYSICIAN IF YOU HAVE ANY QUESTIONS OR IF ANY OF THE FOLLOWING SYMPTOMS OCCUR: * If your incision becomes red, swollen, or more painful than what you have experienced in the hospital. * If your vaginal bleeding becomes foul smelling. * If your vaginal bleeding becomes more heavy than a period or if your bleeding changes from pink to bright red. However, you may pass an occasional walnut-sized clot once or twice for the first week . * If you experience a sharp, shooting pain in your calves. * If you discover a hard, reddened area on your breast or if you experience flu-like symptoms. DIET: * Eat regular, well-balanced meals. * Drink plenty of fluids daily. If , drink to thirst. Stand Alone Forms: General Discharge Information Follow-up/Referrals: Mar Kirk MD [Physician] - 1 Week Discharge Medications: New docusate sodium 100 mg Capsule 100 mg PO BID PRN (Reason: constipation) Qty: 60 0RF escitalopram oxalate 10 mg Tablet 20 mg PO QHS Qty: 30 4RF oxycodone-acetaminophen [Percocet] 5-325 mg tablet 1 tablet PO Q4H PRN (Reason: pain) Qty: 40 0RF Continued albuterol sulfate 90 mcg/actuation aero powdr breath act w/sensor 2 inh inhalation Q4-6H PRN (Reason: carlos
[2022-09-10] MEDS: MULTIVIT/MIN/PREN/FOL AC/IRON TABLET 1 TAB PO (09:40)
[2022-09-10] MEDS: DOCUSATE SODIUM 100 MG CAPSULE PO (09:40)
[2022-09-10] MEDS: SIMETHICONE 80 MG TAB.CHEW PO ×2 (09:40→13:24)
[2022-09-10 13:27] VITALS: PULSE 67; RESP 18; O2SAT 98
--- NOTE | 2022-09-10 14:32 | PC.NURSE ---
[id number] Mother led the conversation with her experience and plan to feed her so far and demonstrates her ability to independently latch optimally without discomfort. Reminded mother to use good handwashing technique to prevent infection. Mother is feeding appropriately for growth of infant and understands stimulating infant to eat if needed. has had appropriate feedings in the last 24 hours meets the outcomes for weight, output and jaundice at this time. Mother states she is confident to continue effectively breastfeed, pump when needed and supplement as she desires to feed her at home, when to call for assistance and denies any additional assistance or education at this time. Reinforced understanding of milk production, transition of milk, signs of adequate intake, transition of stool, prevention/relief of engorgement, prevention/response r/t mastitis, prevention of oversupply, responsive watching for feeding cues, the different methods of stimulating infant to breastfeed 2-3 hours after the start of the last feeding, community resources, and when to call a provider using the resource of the mom and baby guide. Mother voiced understanding of the education shared. Reported to the primary RN.
== END 2022-09-10 14:00 | disposition home or self-care (01) | DRG 540 ==
LOC: ANHLDR 05:32 → ANHOB2 11:26
PROVIDERS: Admitting Provider Obstetrics & Gynecology; PCP Nurse Practitioner Family; Visit Provider Obstetrics & Gynecology
PROC: 10D00Z1 Extraction of Products of Conception, Low, Open Approach (ICD-10-PCS; CPT 59514; principal; 2022-09-07 07:30)
DX: O34.219 Maternal care for unspecified type scar from previous cesarean delivery (principal); F32.A Depression, unspecified; Z37.0 Single live birth; O99.344 Other mental disorders complicating childbirth; F41.9 Anxiety disorder, unspecified; O99.844 Bariatric surgery status complicating childbirth; Z3A.39 39 weeks gestation of pregnancy; J45.909 Unspecified asthma, uncomplicated; O99.52 Diseases of the respiratory system complicating childbirth
CPT/HCPCS: 36415; 85025; A9270; J0131; J0456; J1885; J2274; J2370; J2405; J2590; J7120

== ENCOUNTER 2024-09-01 16:32 | Emergency (ER) | payer OTHER, SELFPAY ==
[2024-09-01 16:47] VITALS: BP 117/75; PULSE 85; RESP 16; TEMP 36.9; O2SAT 100
[2024-09-01 17:02] LABS: EDSTREPNEGPOS1 Negative (Negative)
[2024-09-01 17:08] LABS: EDCOVIDSCREEN Negative (Negative); EDINFLUASCREEN Negative (Negative); EDINFLUBSCREEN Negative (Negative)
--- NOTE | 2024-09-01 17:30 | ED.URI ---
HPI - URI/Sore Throat General Chief Complaint: Upper Respiratory Infection Stated Complaint: SORE THROAT/BODY ACHES Time Seen by Provider: 09/01/24 17:10 Source: patient and RN notes reviewed Mode of arrival: ambulatory Limitations: no limitations History of Present Illness HPI Narrative: 28-year-old female presents Express Care complaining upper respiratory symptoms for 2 days. Patient's complain of a sore throat, congestion, sinus pressure, nausea, and dry cough. Patient denies any fevers, body aches, chills, abdominal pain, chest pain, shortness of breath, vomiting, diarrhea. Patient says she is able to keep fluids down despite having nausea. Patient states she is drinking plenty of fluids. Related Data Home Medications ?Medication ?Instructions ?Recorded ?Confirmed ?Last Taken ?Type cariprazine 1.5 mg capsule 1.5 mg PO Q24H 09/01/24 09/01/24 Unknown History (Vraylar) hydroxyzine HCl 10 mg tablet 10 mg PO DAILY 09/01/24 09/01/24 Unknown History pantoprazole 40 mg tablet,delayed 40 mg PO DAILY 09/01/24 09/01/24 Unknown History release Allergies Allergy/AdvReac Type Severity Reaction Status Date / Time amoxicillin (From Augmentin) Allergy Other Verified 09/01/24 16:41 clavulanic acid (From Allergy Other Verified 09/01/24 16:41 Augmentin) Penicillins Allergy Other Verified 09/01/24 16:41 enoxaparin (From Lovenox) AdvReac Rash Verified 09/01/24 16:41 Review of Systems Review of Systems: CONSTITUTIONAL: Denies fever, chills, or sweats. EYES: Denies visual changes, redness, or discharge. ENT: Denies rhinorrhea, difficulty swallowing, or otalgia. Positive for congestion and sore throat. CARDIOVASCULAR: Denies chest pain, palpitations, or edema. RESPIRATORY: Denies cough or dyspnea. GASTROINTESTINAL: Denies abdominal pain, vomiting, or diarrhea. Positive for nausea GENITOURINARY: Denies dysuria or hematuria. SKIN: Denies rash or itching. MUSCULOSKELETAL: Denies back pain, joint pain, or myalgia. NEUROLOGIC: Denies headache, numbness, or weakness. PSYCHIATRIC: Denies anxiety or depression. All other systems reviewed are negative, except as documented in HPI. [facility] Past Medical History Medical History Asthma delivery delivered History of depression Surgical History Surgical History History of sleeve gastrectomy Family History Family History Other Patient denies significant medical history Social History Social History Smoking status: Never smoker Second hand tobacco smoke exposure: No Substance use: never Lack of Transportation: No Lack of Food: Never True Current Housing: I Have Housing Concerned About Future Housing: No Difficulty Paying Gas/Electric Bills: No Difficulty Paying for Meds: No Currently Unemployed: No Education: Grade School Difficulty w/ Childcare or Family Care: No Spiritual care concerns: No Comments At the time of my signature, I reviewed and agree with the nursing past medical, surgical, social, and family history. There is no relevant family history pertinent to the patient complaint. Exam Narrative: GENERAL: This is a well-nourished, well-developed adult, in no apparent distress. They are non ill-appearing, nontoxic appearing. HEAD: normocephalic, atraumatic. EYES: Sclera clear/white. Vision is grossly intact. EARS: External ears normal, auditory canals clear and without drainage, TMs normal without perforation. Hearing grossly intact. NOSE: External nose normal with no obvious nasal discharge, nasal turbinates are erythematous bilaterally, no rhinorrhea. THROAT: Mucous membranes moist, posterior pharynx erythematous, without exudate. Uvula is midline. NECK: Neck supple, non-tender without lymphadenopathy, masses or thyromegaly. CARDIOVASCULAR: Regular rate and rhythm without murmurs, gallops, or rubs. RESPIRATORY: Clear to auscultation. Breath sounds equal bilaterally. No wheezes, rales, or rhonchi. GASTROINTESTINAL: Abdomen soft, non-tender, nondistended. SKIN: warm, Dry, intact with no suspicious lesions or rash, good texture and turgor. NEURO: awake, alert, and oriented to person, place and time. There were no obvious focal neurologic abnormalities. EXTREMITIES: No joint tenderness, effusion, or edema noted. Course Course Level of Care: Express Care Visit Vital Signs Vital signs: Vital Signs Temperature 98.5 F 09/01/24 16:47 Pulse Rate 85 09/01/24 16:47 Respiratory Rate 16 09/01/24 16:47 Blood Pressure 117/75 09/01/24 16:47 Pulse Oximetry 100 09/01/24 16:47 Temperature 98.5 F 09/01/24 16:47 Pulse Rate 85 09/01/24 16:47 Respiratory Rate 16 09/01/24 16:47 Blood Pressure 117/75 09/01/24 16:47 Pulse Oximetry 100 09/01/24 16:47 Reviewed MDM - URI/Sore Throat MDM Narrative Medical decision making narrative: COVID flu and strep were negative. Throat Culture pending. Symptoms are likely viral in etiology. Will prescribe Zofran as needed for nausea. Will prescribe Tessalon Perles as needed for cough. Discussed physical exam findings. Advised supportive measures and signs/symptoms to go to the ER. Pt is appropriate for outpt treatment and f/u. Differential Diagnosis Differential diagnosis: Likely upper respiratory infection, viral infection and pharyngitis Lab Data Attestation: I reviewed the patient's lab results. Labs: Lab Results 09/01/24 09/01/24 Range/Units 17:01 17:06 POC Influenza A Ag Negative (Negative) POC Influenza B Ag Negative (Negative) POC SARS CoV-2 Ag Negative (Negative) POC Grp A Strep Screen Negative (Negative) Critical Care Time Critical Care Time Critical Care Time: No Discharge Plan Discharge Clinical Impression: Upper respiratory infection Qualifiers: URI type: unspecified viral URI Qualified Code(s): J06.9 - Acute upper respiratory infection, unspecified Patient Disposition: Home Condition: Stable Instructions: Upper Respiratory Infection (ED) Additional Instructions: Your COVID in flu swab were negative. Your rapid strep swab was negative today at [facility]. You will be notified in a few days if the culture comes back positive for strep, and appropriate antibiotics will be called in for you at that time. Your symptoms are likely due to a viral illness, which is not treated with antibiotics. Viral symptoms can be present for up to 10-14 days. You may use throat lozenges for your sore throat as directed on the box. You may also use salt water gargle rinses. He may take Zyrtec or Claritin zpyi-gvv-ztveune antihistamine for congestion. You may use Flonase cavq-uyl-hjtsfra as needed for nasal congestion. Take ibuprofen or Tylenol for fever or pain. Rest and stay hydrated. You may take the Zofran as needed for nausea. Take the benzonatate as needed for cough. Follow up with your PCP in 3-5 days if symptoms are not improving. Go to the ER immediately if you difficulty breathing or swallowing Patient Language: Libyan Prescriptions: New benzonatate 100 mg capsule 100 mg PO TID PRN (Reason: cough) Qty: 20 0RF ondansetron 4 mg tablet,disintegrating 4 mg PO Q8H PRN (Reason: nausea and vomiting) Qty: 14 0RF No Action hydroxyzine HCl 10 mg tablet 10 mg PO DAILY pantoprazole 40 mg tablet,delayed release (DR/EC) 40 mg PO DAILY Vraylar 1.5 mg capsule 1.5 mg PO Q24H albuterol sulfate 90 mcg/actuation aero powdr breath act w/sensor 2 inh inhalation Q4-6H PRN (Reason: shortness of breath or wheezing) Qty: 1 0RF escitalopram oxalate 10 mg Tablet 20 mg PO QHS Qty: 30 4RF Follow-up/Referrals: Maximiliano,Jessica Paige, DYE WEIGHER [Primary Care Provider] - Stand Alone Forms: Work/School Release IP Time of Disposition: 17:27
== END 2024-09-01 17:30 | disposition home or self-care (01) ==
DX: J06.9 Acute upper respiratory infection, unspecified (principal); Z20.822 Contact with and (suspected) exposure to COVID-19; J45.909 Unspecified asthma, uncomplicated; F32.A Depression, unspecified
CPT/HCPCS: 87081; 87426; 87804; 87880; 99213; G0463

== ENCOUNTER 2024-10-09 09:56 | Emergency (ER) | payer OTHER, SELFPAY ==
[2024-10-09 10:02] VITALS: BP 117/74; PULSE 66; RESP 16; TEMP 36.7; O2SAT 100
--- NOTE | 2024-10-09 10:18 | ED.FEMALEGU ---
HPI - Female Genitourinary General Chief complaint: Urogenital-Female Stated complaint: Urinary Problem Time Seen by Provider: 10/09/24 10:18 Source: patient and RN notes reviewed Mode of arrival: ambulatory Limitations: no limitations History of Present Illness HPI Narrative: 28-year-old female presents concern for 1 out day history of dysuria, frequency, difficulty with urine strain. She reports low back pain. Reports suprapubic pressure. She denies fever, aches, chills, sweats. She reports nausea without vomiting. MD elicited complaint: UTI Related Data Home Medications Medication Instructions Recorded Confirmed Last Taken Type cariprazine 1.5 mg capsule 1.5 mg PO Q24H 09/01/24 09/01/24 Unknown History (Vraylar) hydroxyzine HCl 10 mg tablet 10 mg PO DAILY 09/01/24 09/01/24 Unknown History pantoprazole 40 mg tablet,delayed 40 mg PO DAILY 09/01/24 09/01/24 Unknown History release albuterol sulfate 90 mcg/actuation inhalation 10/09/24 Unknown History aerosol inhaler budesonide-formoterol HFA 160 inhalation 10/09/24 Unknown History mcg-4.5 mcg/actuation aerosol inhaler (Symbicort) cetirizine 10 mg tablet mg 10/09/24 Unknown History etonogestrel subdermal 10/09/24 Unknown History Allergies Allergy/AdvReac Type Severity Reaction Status Date / Time amoxicillin (From Augmentin) Allergy Other Verified 10/09/24 10:06 clavulanic acid (From Allergy Other Verified 10/09/24 10:06 Augmentin) Penicillins Allergy Other Verified 10/09/24 10:06 enoxaparin (From Lovenox) AdvReac Rash Verified 10/09/24 10:06 Review of Systems Review of Systems: CONSTITUTIONAL: Denies malaise, chills, sweats, or fever. CARDIOVASCULAR: Denies chest pain, palpitations, or edema. RESPIRATORY: Denies cough or dyspnea. GASTROINTESTINAL: Denies abdominal pain, nausea, vomiting, diarrhea GENITOURINARY: Reports dysuria, frequency, urgency, suprapubic pressure. Denies flank pain or hematuria. SKIN: Denies rash or itching. MUSCULOSKELETAL: Denies back pain or myalgia. All systems reviewed & are unremarkable except as noted in HPI and below PMFSH Past Medical History Medical History Asthma delivery delivered History of depression Surgical History Surgical History History of sleeve gastrectomy Family History Family History Other Patient denies significant medical history Social History Social History Smoking status: Never smoker Second hand tobacco smoke exposure: No Substance use: never Lack of Transportation: No Lack of Food: Never True Current Housing: I Have Housing Concerned About Future Housing: No Difficulty Paying Gas/Electric Bills: No Difficulty Paying for Meds: No Currently Unemployed: No Education: Grade School Difficulty w/ Childcare or Family Care: No Spiritual care concerns: No Comments At time of signature, agree with nursing past medical, surgical, social and family history. There is no relevant family history pertinent to the presenting complaint Exam Narrative: GENERAL: Well-appearing, well-nourished, and in no acute distress. HEAD: Normocephalic. EYES: PERRLA, conjunctivae clear. NECK: Supple. No lymphadenopathy CHEST: Clear to auscultation. No respiratory distress. HEART: Regular rate and rhythm. ABDOMEN: Soft, suprapubic tenderness, otherwise nontender upon palpation, nondistended, normal active bowel sounds, no palpable or pulsatile masses, no guarding. Bilateral CVA tenderness SKIN: Warm, dry, no rash. NEURO: Alert and oriented x3. PSYCH: Normal mood and affect Course Course Emergency Course: Patient is aware of diagnosis, understands and agrees to treatment plan. Anticipatory guidance given. Patient agrees to follow-up as directed and is aware of reasons to seek care at the emergency department. Portions of this record may have been created with voice recognition software Level of Care: Express Care Visit Vital Signs Vital signs: Vital Signs Temperature 98.0 F 10/09/24 10:02 Pulse Rate 66 10/09/24 10:02 Respiratory Rate 16 10/09/24 10:02 Blood Pressure 117/74 10/09/24 10:02 Pulse Oximetry 100 10/09/24 10:02 Oxygen Delivery Room Air 10/09/24 10:02 Temperature 98.0 F 10/09/24 10:02 Pulse Rate 66 10/09/24 10:02 Respiratory Rate 16 10/09/24 10:02 Blood Pressure 117/74 10/09/24 10:02 Pulse Oximetry 100 10/09/24 10:02 Oxygen Delivery Room Air 10/09/24 10:02 Reviewed. MDM - Female Genitourinary MDM Narrative Medical decision making narrative: Exam findings and UA show no acute concerns or changes; patient is non-toxic appearing and is in no distress. Patient is appropriate for outpatient treatment and follow-up. Differential Diagnosis Differential diagnosis: Likely urinary tract infection and cystitis Critical Care Time Critical Care Time Critical Care Time: No Discharge Plan Discharge Clinical Impression: Symptoms of urinary tract infection Patient Disposition: Home Condition: Stable Instructions: Urinary Tract Infection in Women (ED) Additional Instructions: We will send a urine culture to the lab; if the culture identifies an organism that the prescribed antibiotic will not treat, you will receive a phone call from an urgent care staff member and an appropriate antibiotic will be prescribed. -Your symptoms should begin to improve within a day of starting antibiotics. But you should finish all the antibiotic pills you get. Otherwise your infection might come back. -Also recommend: increase water intake. Tylenol/ibuprofen as needed for pain or fever -Follow-up with your primary care provider for urine recheck or seek ER visit if condition worsens with high fever, nausea, vomiting and severe back pain. Patient Language: Kiswahili Prescriptions: New sulfamethoxazole-trimethoprim 800-160 mg tablet 1 tablet PO Q12H 5 Days Qty: 10 0RF No Action cetirizine 10 mg tablet albuterol sulfate 90 mcg/actuation HFA aerosol inhaler INHALATION budesonide-formoterol [Symbicort] 160-4.5 mcg/actuation HFA aerosol inhaler INHALATION etonogestrel [Nexplanon] subdermal hydroxyzine HCl 10 mg tablet 10 mg PO DAILY pantoprazole 40 mg tablet,delayed release (DR/EC) 40 mg PO DAILY Vraylar 1.5 mg capsule 1.5 mg PO Q24H escitalopram oxalate 10 mg Tablet 20 mg PO QHS Qty: 30 4RF Follow-up/Referrals: Maximiliano,Jessica Paige, PIPE STRESS ENGINEER [Primary Care Provider] - Stand Alone Forms: Work/School Release IP Time of Disposition: 10:26
[2024-10-09 10:20] LABS: EDUAAPPEAR Clear; EDUABILI 2+ (Negative); EDUABLOOD Negative (Negative); EDUACOLOR1 Amber; EDUAGLUCOSE Negative (Negative); EDUAKETONE 1+ (Negative); EDUALEUKO Negative (Negative); EDUANITRATE Negative (Negative); EDUAPROTEIN Negative (Negative); EDUAUROBILI 0.2
--- OUTSIDE RECORDS SUMMARY | 2024-10-09 10:31 | XMS_ITS | Patient Health Record ---
Author Organization [facility] Address [address] [place] [address] Care Team Providers Care Courtesy Van Driver Name Role Phone No, PCP Primary Care Provider Unavailabl FANG Stewart Unavailable [phone] Reason For Referral No Information Social History Sex Assigned At : Social History Observation Description Sex Assigned At Female Plan Of Treatment No Information Insurance Providers Payer Name Payer Address Payer Phone Subscriber Number Group Number Insured Name Patient Relationship to Insured Coverage Start Date Coverage End Date [facility] Medicaid [address] [address] [place] [phone] [id number] MONICA, ORQUIDEA Self - patient is the insured Medicaid Wrap [address] [place] [address] [facility] [place] Self - patient is the insured
--- OUTSIDE RECORDS SUMMARY | 2024-10-09 10:34 | XMS_ITS | Data Portability ---
Author Organization [place] - [facility] [employer]ceipt[employer], Main Office Address [address] [place] [address] Care Team Providers Care Pricing Associate Name Role Phone LUIS THOMPSON Primary Care Provider Assessment Encounter Date Assessment Date Assessment LastModified by Organization Details LastModified Time 08/30/2024 08/30/2024 The patient gave verbal consent using services and the consent is documented in the medical record prior to using the service. The patient has been informed of what a TeleMedicine visit is. Patient is located at . Provider is located at office. Names and roles of persons in addition to the patient and provider participating in telemedicine services include . The patient had a minute TeleMedicine consultation via [facility] to discuss the following: [email or web address] Not available 08/30/2024 16:39:46 08/31/2024 08/31/2024 The patient gave verbal consent using TelePhonic services and the consent is documented in the medical record prior to using the service. The patient has been informed of what a TeleMedicine visit is. Patient is located at home. Provider is located at office. Names and roles of persons in addition to the patient and provider participating in telemedicine services include none. The patient had a 12 minute TeleMedicine consultation via [facility] to discuss the following: [email or web address] Not available 08/31/2024 12:10:36 Plan of Treatment Reminders Order Date Submit Date Provider Last Modified By Organization Details Last Modified Time Details Appointments Physical/ Annual Wellness 30 2024 08:30A SIVA To Not available Not available Not available Lab None recorded. Referral psychiatr ist referral - Please call patient to schedule an appointme nt. Thank you. 2023 024 [email or web address] Renetta Timmons Pmhnp, [address] [place] [address], [place], [address], 12/13/2023 09:02:36 Procedures None recorded. Surgeries None recorded. Imaging None recorded. Medication Orders Symbicort 160 mcg-4.5 mcg/actua tion HFA aerosol inhaler 2024 025 [facility] #[id number], [address], [place], [place], [id number], 08/31/2024 11:19:17 Vraylar 1.5 mg capsule 2024 025 [facility] #56463, [address], [place], [place], [id number], 08/31/2024 11:20:54 Medrol (Davis) 4 mg tablets in a dose pack 2024 025 [facility] #00097, [address], [place], [place], [id number], 08/31/2024 11:19:16 ipratropi um 0.5 mg-albute rol 3 mg (2.5 mg base)/3 mL nebulizat ion soln 2024 025 [facility] #23852, [address], [place], [place], [id number], 05/26/2024 11:46:16 Medrol (Davis) 4 mg tablets in a dose pack 2023 024 [facility] #00278, [address], [place], [place], [id number], 11/15/2023 15:24:22 Flonase Allergy Relief 50 mcg/actua tion nasal spray,zoe pension 2023 024 [facility] #85031, [address], [place], [place], [id number], 11/15/2023 15:24:13 cetirizin e 10 mg tablet 2023 [facility] #81248, [address], [place], [place], [id number], 11/15/2023 15:24:19 ondansetr on 4 mg disintegr ating tablet 2023 024 [facility] #73577, [address], [place], [place], [id number], 11/15/2023 15:24:29 Slynd 4 mg (28) tablet 2023 024 [facility] #22061, [address], [place], [place], [id number], 11/15/2023 15:24:13 Lexapro 5 mg tablet 2023 024 [facility] #51678, [address], [place], [place], [id number], 11/15/2023 15:24:17 Patient TargetsNo targets recorded. Patient Instructions Encounter Date Encounter Id Patient Instructions Last Modified By Organization Details Last Modified Time 08/30/2024 [id number] Due to the COVID-19 (Novel Coronavirus) pandemic, it is within this context (and with the understanding that this method of patient encounter is in the patient s best interest as well as the health and safety of other patients and the public) that telehealth is being provided for this patient encounter rather than a mfvi-ig-bnwt visit. This patient encounter is appropriate at this time. This patient has been advised of the potential risks and limitations of this mode of treatment (including, but not limited to, the absence of in-person examination) and has agreed to be treated in a remote fashion despite these risks. Any and all of the patient s/patient s family s questions on this issue have been answered, and I have made no promises or guarantees to the patient. The patient has also been advised to contact this office for worsening conditions or problems, and seek emergency medical treatment and/or call 911 if the patient deems either necessary. HPI and/or vitals, if listed, were provided by the patient. [email or web address] Not available 08/30/2024 16:39:46 08/31/2024 [id number] Due to the COVID-19 (Novel Coronavirus) pandemic, it is within this context (and with the understanding that this method of patient encounter is in the patient s best interest as well as the health and safety of other patients and the public) that telehealth is being provided for this patient encounter rather than a ezaf-fe-jvia visit. This patient encounter is appropriate at this time. This patient has been advised of the potential risks and limitations of this mode of treatment (including, but not limited to, the absence of in-person examination) and has agreed to be treated in a remote fashion despite these risks. Any and all of the patient s/patient s family s questions on this issue have been answered, and I have made no promises or guarantees to the patient. The patient has also been advised to contact this office for worsening conditions or problems, and seek emergency medical treatment and/or call 911 if the patient deems either necessary. HPI and/or vitals, if listed, were provided by the patient. [email or web address] Not available 08/31/2024 11:15:04 Reason for Referral Psychiatrist Referral for An xiety Please call patient to schedule an appointment. Thank you. Referring Physician: Luis Thompson, Family Medicine, Encounter Date: 11/15/2023 Results Created Date Observation Date Name Description Value Unit Range Abnormal Flag Note LastModifiedBy Organization Detail LastModifiedTime 03/18/2003/18/2024 XR, chest , 2 view No observ ation record ed. [email or web address] [facility] [address] [place], [address], 03/18/2024 19:43:31 05/23/2005/23/2024 XR, chest , 2 view No observ ation record ed. [facility] [address] [place], [address], 05/25/2024 09:20:36 Result Notes None recorded. Problems Name Problem SNOMED Code Status Onset Date Resolution Date Notes Provider Name and Address Organization Details Recorded Time Viral pharyngit is 7148904 Completed 202109/14/2023 S[facility]A Evangelista [address], [place], [address] , [email or web address] 4 13:55:56 Thyroid disorder screening Active 2020 Not Available [facility] 3 23:11:10 Diabetes mellitus screening Active 2020 Not Available [facility] 3 23:11:10 Mood swings 56344452 Active 2020 Not Available [facility] 3 23:11:10 Panic attack 488484796 Active 2020 Not Available [facility] 3 23:11:10 Gastroeso phageal reflux disease 691702705 Active 2020 Not Available [facility] 3 23:11:10 Sore throat 557217596 Completed 202109/14/2023 S[facility]A Evangelista [address], [address], [place], [address] , [email or web address] 4 13:55:52 Hyperlipi demia screening Active 2020 Not Available [facility] 3 23:11:11 Screening for disorder Active 2020 Not Available [facility] 3 23:11:11 History of sleeve gastrecto my 78845853376 9107 Active 2020 Not Available [facility] 3 23:11:11 Depressiv e disorder 87129018 Active 2020 Not Available [facility] 3 23:11:11 Seasonal allergic rhinitis 157178103 Completed 202109/14/2023 S[facility] [address], [address], [place], [address] , [email or web address] 4 13:55:48 Migraine 72951623 Active 2020 Not Available [facility] 3 23:11:12 Menorrhag ia 931400259 Active 2020 Not Available [facility] 3 23:11:12 Obesity 386942008 Active 2020 Not Available [facility] 3 23:11:12 Anxiety 10027389 Active 2020 Not Available [facility] 3 23:11:12 Vitamin B12 deficienc y (non anemic) 29281160 Active 2020 Not Available [facility] 3 23:11:12 Fatigue 71532339 Active 2020 Not Available [facility] 3 23:11:13 Iron deficienc y anemia 06716895 Active 2020 Not Available [facility] 3 23:11:13 Asthma 098396170 Active 2022 Shaista Mendoza, VANESSA [address], [address], [place], [address] , [email or web address] 3 10:16:14 Acid reflux 819475973 Active 2023 [facility] [address], [address], [place], [address] , [email or web address] 4 14:35:36 Nausea 570034881 Active 2023 S[facility] [address], [address], [place], [address] , [employer] 4 15:13:33 Dysfuncti on of bilateral eustachia n tubes 64751548129 23578 Active 2023 [facility] [address], [place], [address] , [employer] 4 15:21:05 Community acquired pneumonia 113426695 Active 2024 S[facility] [address], [address], [place], [address] , [employer] 5 11:46:14 Cervical lymphaden opathy 712152417 Active 2024 S[facility] Evangelista [address], [address] [facility], [place], [address] , [facility] [employer] [facility] [employer] [facility] 5 11:04:03 Lumbago with sciatica 678062918 Active 2024 [facility] [address] [facility], [address] [facility], [place], [address] , [facility] [employer] [facility] 5 11:19:01 Lumbago with sciatica 267983897 Active 2024 S[facility] Evangelista [address] [facility], [address], [place], [address] , [facility] [employer] 5 11:19:03 Major depressiv e disorder 177851995 Active 2024 [facility] [address] [facility], [place] [address], [place], [address] , [employer] 5 11:20:11 Low back pain 090583869 Active 2024 [facility]ista [address] [facility], [place] [address], [place], [address] , [facility] [employer] 5 11:45:05 Problem Notes None recorded. Procedures Surgical History Date Name Laterality Status Provider Name and Address Organization Details Recorded Time 02/08/20 laparoscopic sleeve gastrectomy completed Not Available [facility] 07/22/2022 23:07:41 surgical debridement of wound completed Not Available [facility] 07/22/2022 23:07:41 delivery completed Not Available [facility] 07/22/2022 23:07:41 cholecystectomy completed Not Available [facility] 07/22/2022 23:07:41 extraction of wisdom tooth completed Not Available [facility] 07/22/2022 23:07:41 Imaging Results Imaging Date Name Status LastModified by Organiz ation Details LastModified Time 03/18/2024 XR, chest, 2 view completed [facility] [address], [place], [address], 03/18/2024 19:43:31 05/23/2024 XR, chest, 2 view completed [facility] [address], [place], [address], 05/25/2024 09:20:36 Procedure Notes None recorded. Medical Equipment None Reported. Allergies Allergen ID Allergen Name Allergen Category Reaction Reaction Severity Criticality Documentation Date Start Date Code Code System Note Provider Name and Address Organization Details Recorded Time 04770 Product containin g penicilli n (product) medicatio n facial swelling Not available Not available 07/22/2022 03882 8001 SNOMED Not Available [facility] 3 23:14:29 93316 Lovenox medicatio n Not available Not available Not available 07/22/2022 93956 6 RxNorm Not Available [facility] 3 23:14:29 34464 Augmentin medicatio n Not available Not available Not available 07/22/2022 39406 2 RxNorm Not Available [facility] 3 23:14:29 19503 enoxapari n medicatio n hives Not available Not available 05/26/2024 66429 RxNorm [facility] [address], [address], [place], [address] [place] [address] [employer] [facility] 5 11:13:13 Medications Name Sig Start Date Stop Date Status Note LastModified by Organization Details LastModified Time cyclobenzap rine 10 mg tablet Take 1 tablet 3 times a day by oral route as needed for 10 days. 2024 active Not Available Not Available Not Avai lable venlafaxine 75 mg tablet Take 1 tablet twice a day by oral route. 2020 active Not Available Not Available Not Avai lable ipratropium 0.5 mg-albutero l 3 mg (2.5 mg base)/3 mL nebulizatio n soln Inhale 3 mL 4 times a day by nebulizat ion route as needed for 10 days. 2024 active Not Available Not Available Not Avai lable clindamycin HCl 300 mg capsule Take 1 capsule 3 times a day by oral route for 7 days. 11/06 completed Not Available Not Available Not Available citalopram 40 mg tablet Take 1 tablet every day by oral route. 07/23 completed Not Available Not Available Not Available cetirizine 10 mg tablet TAKE 1 TABLET BY MOUTH EVERY DAY IN THE MORNING 2023 active Not Available Not Available Not Avai lable Iron (ferrous sulfate) 325 mg (65 mg iron) tablet Take 1 tablet every day by oral route. 09/11 completed Not Available Not Available Not Available ondansetron HCl 4 mg tablet TAKE 1 TABLET BY MOUTH EVERY 6 TO 8 HOURS 11/06 completed Not Available Not Available Not Available Medrol (Davis) 4 mg tablets in a dose pack Take as directed 2024 active Not Available Not Available Not Avai lable prednisone 20 mg tablet TAKE 2 TABLETS BY MOUTH EVERY DAY FOR 5 DAYS 09/11 completed Not Available Not Available Not Available Tubersol 5 tub. unit/0.1 mL intradermal injection solution Inject 0.1 units every day by intraderm al route. 03/06 completed Not Available Not Available Not Available Zithromax Z-Davis 250 mg tablet TAKE 2 TABLETS (500 MG) BY ORAL ROUTE ONCE DAILY FOR 1 DAY THEN 1 TABLET (250 MG) BY ORAL ROUTE ONCE DAILY FOR 4 DAYS 2024 active Not Available Not Available Not Avai lable phentermine 15 mg capsule Take 1 capsule every day by oral route. 07/23 completed Not Available Not Available Not Available sumatriptan 50 mg tablet TAKE 1 TABLET BY MOUTH AT ONSET OF HEADACHE active Not Available Not Available No t Available metronidazo le 500 mg tablet TAKE 1 TABLET BY MOUTH EVERY 12 HOURS FOR 7 DAYS 06/25 completed Not Available Not Available Not Available phentermine 37.5 mg tablet TAKE 1 TABLET BY MOUTH EVERY DAY 09/13 completed Not Available Not Available Not Available acetaminoph en 300 mg-codeine 30 mg tablet Take 1 tablet every day by oral route as needed. 11/06 completed Not Available Not Available Not Available tramadol 50 mg tablet Take 1 tablet every 8 hours by oral route as needed for 10 days. 2024 active Not Available Not Available Not Avai lable alprazolam 0.5 mg tablet TAKE 1 TABLET 3 TIMES A DAY BY ORAL ROUTE prn active Not Available Not Available No t Available alprazolam 0.25 mg tablet Take 1 tablet every 24 hours by oral route as needed for 30 days. 2023 active Not Available Not Available Not Avai lable citalopram 20 mg tablet TAKE 1 TABLET BY MOUTH EVERY MORNING active Not Available Not Available No t Available pantoprazol e 40 mg tablet,brigido yed release Take 1 tablet every day by oral route with meal(s) for 90 days. 2023 active Not Available Not Available Not Avai lable cyanocobala min (vit B-12) 1,000 mcg/mL injection solution Inject 1 mL every week by subcutane ous route for 1 day. 09/13 completed Not Available Not Available Not Available buspirone 30 mg tablet Take 1 tablet twice a day by oral route. 11/01 completed 4x a day (as neede d) Not Available Not Available Not Available fluoxetine 10 mg capsule TAKE 1 CAPSULE BY MOUTH EVERY DAY 06/25 completed Not Available Not Available Not Available buspirone 7.5 mg tablet Take 1 tablet twice a day by oral route. 2022 active Not Available Not Available Not Avai lable montelukast 10 mg tablet TAKE 1 TABLET BY MOUTH EVERY DAY IN THE EVENING FOR 30 DAYS active Not Available Not Available No t Available hydroxyzine HCl 25 mg tablet Take 1 tablet 3 times a day by oral route as needed. 09/13 completed Not Available Not Available Not Available Imitrex 100 mg tablet Take 1 tablet every day by oral route as needed. 2022 active Not Available Not Available Not Avai lable albuterol sulfate HFA 90 mcg/actuati on aerosol inhaler INHALE 2 PUFFS BY MOUTH EVERY 4 TO 6 HOURS NEEDED 2024 active Not Available Not Available Not Avai lable ferrous sulfate 325 mg (65 mg iron) tablet,brigido yed release TAKE 1 TABLET BY MOUTH ONCE DAILY 09/13 completed Not Available Not Available Not Available hydroxyzine HCl 10 mg tablet Take 10 mg 3 times a day by oral route as needed for 30 days. 2023 active Not Available Not Available Not Avai lable ondansetron 4 mg disintegrat ing tablet Place 1 tablet 3 times a day by transling ual route as needed for 10 days. 2023 active Not Available Not Available Not Avai lable cefdinir 300 mg capsule TAKE 1 CAPSULE BY MOUTH EVERY 12 HOURS 09/11 completed Not Available Not Available Not Available metoclopram santana 10 mg tablet Take 1 tablet 4 times a day by oral route. 11/06 completed Not Available Not Available Not Available buspirone 15 mg tablet Take 1 tablet every 12 hours by oral route as needed for 30 days. 07/23 completed Not Available Not Available Not Available escitalopra m 10 mg tablet TAKE 1 TABLET BY MOUTH EVERY DAY 11/06 completed Not Available Not Available Not Available aripiprazol e 5 mg tablet Take 1 tablet every day by oral route. 09/11 completed Not Available Not Available Not Available Lexapro 5 mg tablet Take 1 tablet every day by oral route as directed for 30 days. 2023 active Not Available Not Available Not Avai lable nitrofurant oin monohydrate /macrocryst als 100 mg capsule TAKE 1 CAPSULE BY MOUTH EVERY 12 HOURS 11/06 completed Not Available Not Available Not Available duloxetine 20 mg capsule,del ayed release Take 1 capsule twice a day by oral route as directed for 30 days. 11/14 completed Not Available Not Available Not Available Seasonique 0.15 mg-30 mcg (84)/10 mcg(7) tablets,3 month dose pack Take 1 tablet every day by oral route. 09/13 completed Not Available Not Available Not Available aripiprazol e 2 mg tablet TAKE 1 TABLET BY MOUTH ONCE DAILY 11/29 completed Not Available Not Available Not Available Symbicort 160 mcg-4.5 mcg/actuati on HFA aerosol inhaler Inhale 2 puffs twice a day by inhalatio n route as directed. 2024 active Not Available Not Available Not Avai lable Flonase Allergy Relief 50 mcg/actuati on nasal spray,suspe nsion Montchanin 1 spray every day by intranasa l route as needed for 30 days. 2023 active Not Available Not Available Not Avai lable Vraylar 1.5 mg capsule Take 1 capsule every day by oral route as directed for 30 days. 2024 active Not Available Not Available Not Avai lable Slynd 4 mg (28) tablet Take 1 tablet every day by oral route as directed for 28 days. 2023 active Not Available Not Available Not Avai lable Nurtec ODT 75 mg disintegrat ing tablet Take by oral route for 30 days. 11/06 completed Not Available Not Available Not Available [employer] COVID-19 Ag Self Test kit TEST DIRECTED TODAY 11/06 completed Not Available Not Available Not Available Vitals Date Recorded Body height Body mass index (BMI) Body weight Body temperature Heart rate Respiratory rate Oxygen saturation Oxygen saturation in Arterial blood by Pulse oximetry Systolic blood pressure Diastolic blood pressure Provider Name and Address Organization Details Last Updated DateTime 4 154.94 cm 34.1 kg/m2 15419.7 3 g 98 [degF] 72 /min 20 /min 93 % 93 % 114 mm[Hg] 70 mm[Hg] Shaista Bill RN [facility] [employer] [facility] 4 14:40:07 Date Recorded Body height Body temperature Heart rate Respiratory rate Oxygen saturation Oxygen saturation in Arterial blood by Pulse oximetry Systolic blood pressure Diastolic blood pressure Provider Name and Address Organization Details Last Updated DateTime 5 154.94 cm 97.2 [degF] 74 /min 20 /min 98 % 98 % 118 mm[Hg] 82 mm[Hg] Shaista Bill RN [facility] [employer] [facility] 5 11:20:56 Social History Question Answer Notes LastModified by Organization Details LastModified Time Tobacco Smoking Status Never Smoker Not Available [facility] 07/22/2022 23:06:57 Do You Have An Advance Directive? No Information not available 11/06/2022 Do You Wear A Helmet When Biking? Yes [id number] Information not available 07/22/2022 Is Blood Transfusion Acceptable In An Emergency? Yes Information not available 11/06/2022 What Is Your Level Of Caffeine Consumption? Occasional [id number] Information not available 07/22/2022 How Much Tobacco Do You Chew? None [id number] Information not available 07/22/2022 What Is Your Code Status? Full Code Information not available 11/06/2022 In The 14 Days Before Symptom Onset, Have You Had Close Contact With A Laboratory-confi rmed COVID-19 While That Case Was Ill? No [id number] [id number] Information not available 07/22/2022 In The 14 Days Before Symptom Onset, Have You Had Close Contact With A Person Who Is Under Investigation For COVID-19 While That Person Was Ill? No [id number] Information not available 07/22/2022 What Type Of Diet Are You Following? SPECIFIC Low Carb, High Protein MIGRATION.0301 [id number] Information not available 07/22/2022 Which Illicit Or Recreational Drugs Have You Used? None [id number].0301 [id number] Information not available 07/22/2022 What Is The Highest Grade Or Level Of School You Have Completed Or The Highest Degree You Have Received? [id number] Information not available 11/06/2022 How Many Days Of Moderate To Strenuous Exercise, Like A Brisk Walk, Did You Do In The Last 7 Days? 60 Information not available 01/07/2023 Have There Been Any Changes To Your Family Or Social Situation? No [id number].0301 [id number] Information not available 07/22/2022 Are There Any Guns Present In Your Home? No MIGRATION.0301 [id number] Information not available 07/22/2022 Do You Use Insect Repellent Routinely? Yes Information not available 11/06/2022 Where Do You Live? SingleLevelHouse Information not available 11/06/2022 Do You Have A Medical Power Of Asset Card Clerk? No Information not available 11/06/2022 How Many Children Do You Have? 3 Information not available 11/06/2022 Do You Have Any Pets? No MIGRATION.0301 [id number] Information not available 07/22/2022 What Is Your Relationship Status? Single Information not available 11/06/2022 Do You Use Your Seat Belt Or Car Seat Routinely? Yes MIGRATION.0301 [id number] Information not available 07/22/2022 Do You Have Smoke And Carbon Monoxide Detectors In Your Home? No MIGRATION.0301 [id number] Information not available 07/22/2022 Are There Any Smokers In Your House? No MIGRATION.0301 [id number] Information not available 07/22/2022 Do You Participate In Social Media? Yes MIGRATION.0301 [id number] Information not available 07/22/2022 What Types Of Sporting Activities Do You Participate In? Walking, Weights Information not available 01/07/2023 Do You Use Sunscreen Routinely? Yes MIGRATION.0301 [id number] Information not available 07/22/2022 Have You Recently Traveled Abroad? No Information not available 11/06/2022 Sex: Female Functional Status Question Answer Note LastModified by Organizat ion Details LastModified Time What is your level of alcohol consumption? Occasional [id number] Information not available 07/22/2022 Are you currently employed? 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 Never used electronic cigarettes [id number] Information not available 07/22/2022 What is your exercise level? Occasional Information not available 01/07/2023 Mental Status Question Answer Note LastModified by [employer] Details LastModified Time Do you feel stressed (tense, restless, nervous, or anxious, or unable to sleep at night)? [id number] Information not available 07/22/2022 Family History Relationship Description Onset Age of this Age Resolved Age Notes LastModified by Organization Details LastModified Time Paternal Grandfather Diabetes mellitus [id number] Not available 07/22/2022 23:07:49 Paternal Grandmother Diabetes mellitus [id number] Not available 07/22/2022 23:07:49 Maternal Grandmother Congestive heart failure [id number] Not available 07/22/2022 23:07:49 Maternal Grandfather Pulmonary emphysema passed [id number] Not available 07/22/2022 23:07:49 Medical History Condition Response BLINDNESS N RHEUMATIC FEVER N KIDNEY STONES N BLADDER PROBLEMS N MRSA N OTHER # 1 N POLIO N LUNG DISEASE/DISORDER N RADIATION / CHEMOTHERAPY N COPD N Other # 2 N BLOOD DISEASES N SURGERY N EAR OR HEARING PROBLEMS N MUMPS N FEMALE PROBLEMS / INFECTIONS N DEPRESSION (INCLUDING POST ) Y BOWEL PROBLEMS N STROKE/TIA N THYROID DISEASE N ULCERS N BENIGN PROSTATIC HYPERPLASIA N MEASLES N CERVICALGIA N TB SKIN TEST N MYOCARDIAL INFARCTION N [place] N OBESITY N [id number]|2024-10-09 10:35:00|2024-10-09 10:34:00|XMS_ITS|WENDYG RHONDA|External Medical Summaries|[id number]|" Data Portability Created on: October 09, 2024 Kaylan Frederick .[id number] : 1995 Sex: Female Author Organization [facility] Address [address] [place] [address] Care Team Providers Care Pricing Associate Name Role Phone LUIS THOMPSON Primary Care Provider Assessment Encounter Date Assessment Date Assessment LastModified by Organization Details LastModified Time 09/14/2022 09/14/2022 Normal incision check at 1 week pp suspect intertrigo, but given her history will treat for cellulitis also. clinda due to allergies and . also nystop powder. continue modified activities as tolerated continue vitamins Precautions given FU for 4 week exam [email or web address] Not available 09/18/2022 17:57:50 09/21/2022 09/21/2022 incision great,, suspect muscular pain. recautions given FU 3 weeks pp visit. [email or web address] Not available 09/21/2022 14:02:50 05/19/2024 05/19/2024 Annual gynecological exam performed. Patient will come back in a year unless there are new symptoms. [email or web address] Not available 05/19/2024 12:01:23 Plan of Treatment Reminders Order Date Submit Date Provider Last Modified By Organization Details Last Modified Time Details Appointments None recorded. Lab test, urine 2023 024 [address], [address], [place], [address], 4 11:26:41 Referral None recorded. Procedures None recorded. Surgeries None recorded. Imaging None recorded. Medication Orders Nexplanon 68 mg subdermal implant 2023 024 [email or web address] Not available 4 14:16:53 clindamycin HCl 300 mg capsule 2022 023 [email or web address] [id number], [address] , [place], [place], [id number], 4 10:43:35 nystatin 100,000 unit/gram topical powder 2022 023 [email or web address] [facility][id number], [address] , [place], [place], [id number], 4 16:29:28 Patient TargetsNo targets recorded. Patient InstructionsNo instructions recorded. Reason for Referral None Reported. Results Created Date Observation Date Name Description Value Unit Range Abnormal Flag Note LastModifiedBy Organization Detail LastModifiedTime 08/20/19 23 08/19/2022 CULTU RE: GROUP B STREP SCREE N, REFLE X SUSCE PTIBI LITY result report SEE RESULT S BELOW Test: Cultu re: Group B Strep , Refle x Susce ptibi lity ([facility] ) Speci men Sourc e: Vagin a/Rec brook Speci men Type: Vagin al/Re ctal Speci men Date: 2022 3:18 PM Resul t Date: 023 3:45 PM Resul t Statu s: Final resul t Abnor mal: No Resul ting Lab: [facility] [address] [facility] [address] Tel: CULTU RE ----- ----- ----- --- No Group B strep isola bertram at 2 days (marleen ctive broth socorro miller t) Not Available [facility] (Lab) [address], [place], [address], 08/22/2022 16:48:01 04/13/20 24 04/13/2024 pregn estephania test, urine HCG negati ve Not Available Byron [address], [place], [address], 04/13/2024 11:26:31 05/19/20 24 05/19/2024 IMAGE GUIDE D PAP, REFLE X HPV IF ASCUS ONLY image guided Pap, reflex HPV ASCUS only SEE RESULT S BELOW CASE REPOR T: Cytol ogy Gynec ologi cheri Repor t Case: [id number] Autho eleno g Provi kylie: Sharda Correia, VANESSA Colle cted: 05/19 1246 Order ing Locat ion: [place] [facility] Recei eduarda: 05/22 1020 First Scree n: Connie sky, Miguel baxter, CT Speci men: Scree mariaelena Pap - Image d, Cervi x STATE MENT OF ADEQU ACY: Satis facto ry for evalu ation Trans forma tion zone compo nent prese nt ----- ----- ----- ----- ----- ----- ----- ----- ----- ----- ----- ----- ----- ----- ----- ----- ----- ---- FINAL DIAGN OSIS: Negat adam for Intra epith elial Sweta almanzar or Jim sanchez ([facility]) . Elect denver vazquez by Miguel sky, CT on 025 at 1252 DIRECTOR OF DEMENTIA OPERATIONS ----- ----- ----- ----- ----- ----- ----- ----- ----- ----- ----- ----- ----- ----- ----- ----- ----- ---- COMME NT: This speci men was revie wed by a Cytot echno logis t and/o r Patho logis t (as indic ated in this repor t) after evalu ation using the Thinp rep Imagi ng Syste m. CLINI CHERI INFOR MATIO N: Menst rual Statu s: LMP (if appli cable ): 05/07 Clini cheri Histo ry/Pr eviou s Pap: Type of Neopl carlos enrique (if appli cable ): Signi fican t Clini cheri Findi ngs: Other Histo ry: Hormo radha (if appli cable ): PAP EDUCA LISA L NOTE: The Pap Test is a scree mariaelena test with an inher ent false negat adam rate. Liqui d-bas ed sampl ing may decre ase, but will not elimi sury, false negat adam resul ts. A negat adam resul t does not precl ude the prese nce and/o r devel opmen t of disea se, since the prese nce of abnor mal cells in the sampl e depen ds on the locat ion of the lesio n and sampl ing techn ique. Ramiro nued regul ar scree mariaelena is the best metho d of cance r preve ntion . If repor bertram cytol ogic findi ng do not corre late with physi cheri and/o r histo rical findi ngs, furth er inves tigat ion is recom elinor d, as clini rick crespo nted. Not Available [facility] (Lab) [address], [place], [address], 06/01/2024 13:56:11 09/03/19 23 09/02/2022 US, obste tric, bioph ysica l profi le No observ ation record ed. [email or web address] [place] [address], [place], [address], 11/10/2022 12:23:09 09/03/1909/02/2022 non-s tress test No observ ation record ed. [email or web address] [facility] [address], [place], [address], 11/10/2022 12:23:22 Result Notes None recorded. Problems Name Problem SNOMED Code Status Onset Date Resolution Date Notes Provider Name and Address Organization Details Recorded Time Pregnanc y 68796013 Completed 202109/14/2022 Elizabeth Manuel [facility] 3 16:19:16 Past pregnanc y history of section 215221823 Active x2 in [place], repeat. transfus ion and infectio n, debridem ent, wound vac with second. NO TUBAL Elizabeth Jeffersle [facility] 3 16:19:10 Mixed anxiety and depressi ve disorder 349562977 Active lexapro 10mg INCREASE AFTER DELIVERY Elizabeth Manuel [facility], [facility] 3 16:19:10 Past pregnanc y history of gestatio nal hyperten stephanie 107825400 Active ASA Elizabeth Manuel [facility] 3 16:19:10 Past pregnanc y history of section 557221175 Completed x2 in [place], repeat. transfus ion and infectio n, debridem ent, wound vac with second. NO TUBAL Sharonaney Mar [facility], [facility] 3 16:19:10 Mixed anxiety and depressi ve disorder 596921156 Completed lexapro 10mg INCREASE AFTER DELIVERY Elizabeth Manuel [facility] 3 16:19:10 Past pregnanc y history of gestatio nal hyperten stephanie 644443464 Completed ASA Elizabeth Jeffersle [facility] 3 16:19:10 Placenta previa 95179221 Completed marginal previa, repeat 4w Mar Kirk MD [address], [place], [address], [facility] 2 11:31:12 Subchori onic hematoma 275028467 Completed large, repeat 4w Britaney Mar null, [facility] 3 16:19:10 Subchori onic hematoma 461432450 Active large, repeat 4w Britaney Mar null, [facility] 3 16:19:10 Uterine size for dates discrepa ncy 661087435 Completed 2022 nl growth 34w Britaney Mar null, [facility] 3 16:19:10 Uterine size for dates discrepa ncy 247009632 Active 2022 nl growth 34w Britaney Mar null, [facility] 3 16:19:10 Problem Notes None recorded. Procedures Surgical History Date Name Laterality Status Provider Name and Address Organization Details Recorded Time 024 Control Implant Insertion completed KAREN Ferreira [address], [place], [address], [facility] 04/13/2024 11:32:11 023 SECTION (SURG) completed Angella Coon [facility] 09/08/2022 09:43:04 022 Date of Last Pap Smear completed Deirdre Finnegan [facility] 02/04/2022 14:47:48 020 laparoscopic sleeve gastrectomy completed Deirdre Finnegan [facility] 02/04/2022 19:31:48 020 procedure on wound completed Deirdre Finnegan [facility] 02/04/2022 19:32:29 020 procedure on wound completed [facility] 02/04/2022 19:32:22 020 procedure on wound completed [facility] 02/04/2022 19:32:25 020 transfusion of blood product completed [facility] 02/04/2022 19:32:[address] [facility] 02/04/2022 19:30:31 017 extraction of wisdom tooth completed [facility] 02/04/2022 19:31:[address] [facility] 02/04/2022 19:30:[address] [facility] 02/04/2022 19:30:51 Imaging Results Imaging Date Name Status LastModified by Organiz ation Details LastModified Time 09/02/2022 US, obstetric, biophysical profile completed [address], [address], 11/10/2022 12:23:09 09/02/2022 non-stress test completed [address], [address], 11/10/2022 12:23:22 Procedure Notes None recorded. Medical Equipment None Reported. Allergies Allergen ID Allergen Name Allergen Category Reaction Reaction Severity Criticality Documentation Date Start Date Code Code System Note Provider Name and Address Organization Details Recorded Time 42742 Product containin g penicilli n (product) medicatio n Not available Not available Not available 02/04/2022 82779 8001 SNOMED [facility] 14:43:13 26422 Augmentin medicatio n Not available Not available Not available 02/04/2022 59808 2 RxNorm Deirdre Finnegan fermín, [facility] 2 14:43:43 92755 Lovenox medicatio n Not available Not available Not available 02/04/2022 30383 6 RxNorm Deirdre Finnegan fermín, [facility] 2 14:44:13 Medications Name Sig Start Date Stop Date Status Note LastModified by Organization Details LastModified Time clindamyc in HCl 300 mg capsule TAKE 1 CAPSULE BY MOUTH EVERY 6 HOURS FOR 10 DAYS 04/13 completed Not Available Not Available Not Available citalopra m 40 mg tablet TAKE 1 TABLET BY MOUTH EVERY DAY 02/04 completed Not Available Not Available Not Available cetirizin e 10 mg tablet TAKE 1 TABLET BY MOUTH EVERY MORNING active Not Available Not Available No t Available Stool Softener 100 mg capsule TAKE 1 CAPSULE BY MOUTH TWICE DAILY NEEDED FOR CONSTIPA TION 11/29 completed Not Available Not Available Not Available azithromy esteban 250 mg tablet TAKE 2 TABLETS BY MOUTH FOR 1 DAY THEN TAKE 1 TABLET BY MOUTH DAILY FOR 4 DAYS DIRECTED 11/29 completed Not Available Not Available Not Available ibuprofen 800 mg tablet TAKE 1 TABLET BY MOUTH EVERY 12 HOURS FOR 10 DAYS 04/13 completed Not Available Not Available Not Available Lidocaine Viscous 2 % mucosal solution SWISH AND SPIT 5 ML THREE TIMES DAILY FOR 3 DAYS 12/21 completed Not Available Not Available Not Available sumatript an 100 mg tablet TAKE 1 TABLET BY MOUTH EVERY DAY NEEDED active Not Available Not Available No t Available Nystop 100,000 unit/gram topical powder APPLY TO THE AFFECTED AREA(S) BY TOPICAL ROUTE 2 TIMES PER DAY 11/29 completed Not Available Not Available Not Available promethaz ine 12.5 mg tablet take 1 tablet by oral route 4 times every day before meals and at bedtime 02/04 completed Prescrib marisabel Sahu e: No Locat ion: Celena dobson [facility] odify By: pily royal DateTime : 12/08/19 08:41:02 AM Not Available Not Available Not Available ondansetr on HCl 4 mg tablet TAKE 1 TABLET BY MOUTH EVERY 8 HOURS 12/27 /2024 completed Not Available Not Available Not Available prednison e 20 mg tablet TAKE 2 TABLETS BY MOUTH DAILY WITH FOOD FOR 5 DAYS. DO NOT TAKE WITH ASPIRIN OR NSAIDS SUCH ALEVE OR IBUPROFE N ETC 04/13 completed Not Available Not Available Not Available metronida zole 500 mg tablet TAKE 1 TABLET BY MOUTH EVERY 12 HOURS FOR 7 DAYS 03/06 completed Not Available Not Available Not Available phentermi ne 37.5 mg tablet TAKE 1 TABLET BY MOUTH EVERY DAY 11/29 completed Not Available Not Available Not Available acetamino phen 300 mg-codein e 30 mg tablet TAKE 1 TABLET BY MOUTH EVERY DAY NEEDED 07/22 completed Not Available Not Available Not Available oxycodone -acetamin ophen 5 mg-325 mg tablet TAKE 1 TABLET BY MOUTH EVERY 4 HOURS NEEDED FOR PAIN 11/29 completed Not Available Not Available Not Available alprazola m 0.5 mg tablet TAKE 1 TABLET BY MOUTH THREE TIMES A DAY NEEDED 03/06 completed Not Available Not Available Not Available alprazola m 0.25 mg tablet TAKE 1 TABLET BY MOUTH AT BEDTIME NEEDED active Not Available Not Available No t Available citalopra m 20 mg tablet TAKE 1 TABLET BY MOUTH EVERY MORNING 02/04 completed Not Available Not Available Not Available cephalexi n 500 mg capsule TAKE 1 CAPSULE BY MOUTH TWICE DAILY FOR 10 DAYS 11/29 completed Not Available Not Available Not Available pantopraz ole 40 mg tablet,de layed release TAKE 1 TABLET BY MOUTH EVERY DAY active Not Available Not Available No t Available fluoxetin e 10 mg capsule TAKE 1 CAPSULE BY MOUTH EVERY DAY 07/22 completed Not Available Not Available Not Available buspirone 7.5 mg tablet TAKE 1 TABLET BY MOUTH TWICE DAILY 11/29 completed Not Available Not Available Not Available monteluka st 10 mg tablet TAKE 1 TABLET BY MOUTH EVERY DAY IN THE EVENING FOR 30 DAYS 03/06 completed Not Available Not Available Not Available hydroxyzi ne HCl 25 mg tablet TAKE 1 TABLET BY MOUTH THREE TIMES DAILY NEEDED 11/29 completed Not Available Not Available Not Available codeine 10 mg-guaife nesin 100 mg/5 mL oral liquid TAKE 5 ML BY MOUTH EVERY 6 HOURS NEEDED FOR COUGH 11/29 completed Not Available Not Available Not Available methylpre dnisolone 4 mg tablets in a dose pack FOLLOW PACKAGE DIRECTIO NS 11/29 completed Not Available Not Available Not Available albuterol sulfate HFA 90 mcg/actua tion aerosol inhaler INHALE 2 PUFFS BY MOUTH EVERY 4 TO 6 HOURS NEEDED active Not Available Not Available No t Available hydroxyzi ne HCl 10 mg tablet TAKE 1 TABLET BY MOUTH THREE TIMES DAILY NEEDED active Not Available Not Available No t Available ondansetr on 4 mg disintegr ating tablet DISSOLVE 1 TABLET ON THE TONGUE THREE TIMES DAILY FOR 10 DAYS NEEDED 11/29 completed Not Available Not Available Not Available cefdinir 300 mg capsule TAKE 1 CAPSULE BY MOUTH EVERY 12 HOURS 02/04 completed Not Available Not Available Not Available fluticaso ne propionat e 50 mcg/actua tion nasal spray,zoe pension SHAKE LIQUID AND USE 1 SPRAY IN EACH NOSTRIL EVERY DAY NEEDED 11/29 completed Not Available Not Available Not Available doxycycli ne hyclate 100 mg tablet 05/19 completed Not Available Not Available Not Available metoclopr amide 10 mg tablet 03/06 completed Not Available Not Available Not Available buspirone 15 mg tablet TAKE 1 TABLET BY MOUTH EVERY 12 HOURS NEEDED FOR ANXIETY 02/04 completed Not Available Not Available Not Available azithromy esteban 500 mg tablet TAKE 1 TABLET BY MOUTH DAILY FOR 5 DAYS 11/29 completed Not Available Not Available Not Available escitalop stevie 10 mg tablet TAKE 1 TABLET BY MOUTH DAILY 04/13 completed Not Available Not Available Not Available escitalop stevie 20 mg tablet TAKE 1 TABLET BY MOUTH EVERY DAY IN THE MORNING active Not Available Not Available No t Available aripipraz ole 5 mg tablet TAKE 1 TABLET BY MOUTH EVERY DAY 02/04 completed Not Available Not Available Not Available escitalop stevie 5 mg tablet TAKE 1 TABLET BY MOUTH EVERY DAY DIRECTED 04/13 completed Not Available Not Available Not Available nitrofura ntoin monohydra te/macroc rystals 100 mg capsule TAKE 1 CAPSULE BY MOUTH EVERY 12 HOURS 07/22 completed Not Available Not Available Not Available duloxetin e 20 mg capsule,d elayed release TAKE 1 CAPSULE BY MOUTH TWICE DAILY DIRECTED 11/29 completed Not Available Not Available Not Available 11/29 completed Not Available Not Available Not Available Nexplanon 68 mg subdermal implant Inject 1 implant by subcutan eous route. 2023 active Not Available Not Available Not Lisa jimenez Simpesse 0.15 mg-30 mcg (84)/10 mcg(7) tablets,3 month dose pack TAKE 1 TABLET BY MOUTH EVERY DAY 11/29 completed Not Available Not Available Not Available BinaxNOW COVID-19 Ag Self Test kit TEST DIRECTED TODAY 03/06 completed Not Available Not Available Not Available Vitals Date Recorded Body height Body mass index (BMI) Systolic blood pressure Diastolic blood pressure Provider Name and Address Organization Details Last Updated DateTime 09/14/2022 152.4 cm 35 kg/m2 130 mm[Hg] 82 mm[Hg] [facility] [place] 09/14/2022 10:30:43 Date Recorded Body weight Provider Name an d Address Organization Details Last Updated DateTime 09/14/2022 82886.32905 g Elizabeth Manuel [facility] 09/14/2022 16:19:14 Date Recorded Body height Body mass index (BMI) Body weight Systolic blood pressure Diastolic blood pressure Provider Name and Address Organization Details Last Updated DateTime 09/21/2022 152.4 cm 33.6 kg/m2 06260.89 g 112 mm[Hg] 70 mm[Hg] [facility] [place] 3 11:09:33 Date Recorded Body height Body mass index (BMI) Body weight Systolic blood pressure Diastolic blood pressure Provider Name and Address Organization Details Last Updated DateTime 11/30/2023 152.4 cm 35.9 kg/m2 14697 g 121 mm[Hg] 84 mm[Hg] Adelina Winchester [facility] 16:37:05 Date Recorded Body height Body mass index (BMI) Body weight Systolic blood pressure Diastolic blood pressure Provider Name and Address Organization Details Last Updated DateTime 04/13/2024 152.4 cm 36.1 kg/m2 95895.59 g 126 mm[Hg] 82 mm[Hg] Lauren Nunez [facility] 4 10:43:25 Date Recorded Body height Body mass index (BMI) Body weight Systolic blood pressure Diastolic blood pressure Provider Name and Address Organization Details Last Updated DateTime 05/19/2024 154.94 cm 34.1 kg/m2 50234.06 g 119 mm[Hg] 81 mm[Hg] Virgen Navarro [facility] 4 12:10:25 Social History Question Answer Notes LastModified by Organizat ion Details LastModified Time Tobacco Smoking Status Never Smoker Deirdre kovacs, [facility] 02/04/2022 14:48:52 If You Are , What Was Your Level Of Alcohol Consumption Prior To ? None Information not available 02/04/2022 Are You Blind Or Do You Have Difficulty Seeing? No [email or web address] Information n ot available 02/04/2022 What Is Your Level Of Caffeine Consumption? Moderate [email or web address] Information not available 02/04/2022 In The 14 Days Before Symptom Onset, Have You Had Close Contact With A Laboratory-confirm ed COVID-19 While That Case Was Ill? No [email or web address] Information n ot available 02/04/2022 In The 14 Days Before Symptom Onset, Have You Had Close Contact With A Person Who Is Under Investigation For COVID-19 While That Person Was Ill? No [email or web address] Information not available 02/04/2022 Have You Been To An Area Known To Be High Risk For COVID-19? No [email or web address] Information not available 02/04/2022 Are You Deaf Or Do You Have Serious Difficulty Hearing? No [email or web address] Information not available 02/04/2022 What Type Of Diet Are You Following? REGULAR [email or web address] Information n ot available 02/04/2022 Do You Use Your Seat Belt Or Car Seat Routinely? Yes [email or web address] Information not available 02/04/2022 Do You Have Smoke And Carbon Monoxide Detectors In Your Home? Yes [email or web address] Information not available 02/04/2022 Do You Use Sunscreen Routinely? Yes [email or web address] Information not available 02/04/2022 Has Tobacco Cessation Counseling Been Provided? No [email or web address] Information not available 02/04/2022 Do You Have Difficulty Walking Or Climbing Stairs? No [email or web address] Information not available 02/04/2022 Sex: Unknown Functional Status Question Answer Note LastModified by Organizat ion Details LastModified Time Do you use any illicit or recreational drugs? No [email or web address] Information not available 02/04/2022 Do you or have you ever used any other forms of tobacco or nicotine? No [email or web address] Information not available 02/04/2022 What is your level of alcohol consumption? None [email or web address] Information not available 02/04/2022 Are you able to walk? YESWOREST [email or web address] Information not available 02/04/2022 Are you able to care for yourself? Yes [email or web address] Information n ot available 02/04/2022 Do you have difficulty dressing or bathing? No [email or web address] Information not available 02/04/2022 What is your exercise level? Occasional [email or web address] Information not available 02/04/2022 Mental Status Question Answer Note LastModified by Organization D etails LastModified Time Do you feel stressed (tense, restless, nervous, or anxious, or unable to sleep at night)? [id number] [email or web address] Information not available 02/04/2022 Family History Relationship Description Onset Age of this Age Resolved Age Notes LastModified by Organization Details LastModified Time Maternal Grandmother Diabetes mellitus [email or web address] Not available 02/04 19:28:54 Maternal Grandmother Heart disease [email or web address] Not available 02/04 19:29:14 Maternal Grandmother Hypertensive disorder [email or web address] Not available 02/04 19:29:35 Maternal Grandfather Hypertensive disorder [email or web address] Not available 02/04 19:29:35 Maternal Grandfather Hypercholest erolemia [email or web address] Not available 02/04 19:29:50 Notes:Maternal grandmother: Congenital heart disease, Hypertension, Diabetes mellitus Medical History Condition Response Allergies (Food, seasonal, environmental ) Y Other N Breast Cancer N Drug/Latex Allergies/Reactions Y Blood Transfusion Y Lung Disease N Dermatologic Disorders N Defects or Inherited Disease N Breast Problem N Gestational Diabetes N Hematologic disorders N Anesthesia Complications N History of STI Y Deep Vein Thrombosis N Polycystic ovary syndrome N Anxiety Disorder Y Autoimmune disease N Arthritis N Polyps N Infertility N History of abnormal pap N Acid Reflux (GERD) N Cancer N Varicosities N Stroke N Neurologic/Epilepsy N Endometriosis N High Cholesterol N Fibromyalgia N Headaches N Kidney Disease N Heart Problems N Kidney or Bladder Problems N Thyroid Problems N GI Problems Y Eating Disorder N Anemia N Art (IVF or FET) N Psychiatric Illness N Ovarian Cancer N Diabetes N Pulmonary (TB, Asthma) N Hepatitis/Liver Disease N No Past Medical History N Eczema N Urinary Tract Infection N Abuse/Domestic Violence N Asthma Y Trauma/Violence N Depression/ depression Y Heart Disease N Pre-Eclampsia N Hypertension N Osteoporosis N Thrombophilias N Gynecological History Statement/Question Response Date of Last Mammogram Flow Light Date of LMP 05/07/2024 Was last menstrual period normal Y STIs/STDs Y Date of Last Colonoscopy Desired Control Method Implant Abnormal Pap Y On BCP's at Conception? N HPV Vaccine Y Colposcopy Duration of Flow (days) 4 Current Control Method Implant Age at First Child 17 Are cycles usually normal Y Frequency of Cycle (Q days) 29 Sexually Active? Y Menses Monthly Y Date of DEXA bone scan Age of first menstrual cycle 12 Date of Last Pap Smear 02/04/2022 Sexual Problems? N LMP Definite Obstetrics History GPAL:G 4 P 3 0 1 3 Type Value Full Term 3 Spontaneous 1 Living 3 Total 4 Past Encounters Encounter ID Performer Location Encounter Start Date Encounter Closed Date Diagnosis/Indication Diagnosis SNOMED-CT Code Diagnosis ICD10 Code Diagnosis Note [id number] Issac Vincent MD [facility] [address] [address] 02/04/2022 13:33:35 02/04/2022 14:30:15 [id number] Soheila Bingham CNM [facility] [address] [address] 02/04/2022 13:35:58 02/05/2022 10:59:13 test positive 130022194 Z32.01 Mixed anxi ety and depressive disorder [id number] F41.8 if any suicidal ideations to ED, f/u med check in 3 months se risks and benefits [id number] Mar Kirk MD [facility] [address] [address] 03/06/2022 11:54:04 03/06/2022 12:36:51 screening [id number] Z36.82 [id number] Mar Kirk MD [facility] [address] [address] 03/06/2022 11:54:29 03/06/2022 14:10:30 Routine care [id number] Z34.91 screening [id number] Z36.82 Past pregn estephania history of section 861778260 Z98.890 Past pregn estephania history of gestational hypertension [id number] Z87.59 Mixed anxi ety and depressive disorder [id number] F41.8 [id number] Mar Kirk MD [facility] [address] [address] 03/16/2022 13:17:47 03/16/2022 14:10:35 Spotting per vagina in [id number] O26.859 Z3A.14 [id number] Mar Kirk MD [facility] [address],[place] [address] 04/06/2022 10:47:20 04/06/2022 11:43:19 Low lying placenta [id number] O44.40 O36.8920 Z3A.17 [id number] Mar Navarro
== END 2024-10-09 10:30 | disposition home or self-care (01) ==
PROVIDERS: Emergency Provider Nurse Practitioner
DX: R30.0 Dysuria (principal); R35.0 Frequency of micturition; R39.15 Urgency of urination; J45.909 Unspecified asthma, uncomplicated; F32.A Depression, unspecified; Z98.84 Bariatric surgery status
CPT/HCPCS: 81003; 87086; 99213; G0463

== ENCOUNTER 2024-12-11 09:49 | Emergency (ER) | payer OTHER, SELFPAY ==
[2024-12-11 10:00] VITALS: BP 111/71; PULSE 67; RESP 18; TEMP 36.6; O2SAT 98
--- NOTE | 2024-12-11 10:32 | ED.URI ---
HPI - URI/Sore Throat General Chief Complaint: Upper Respiratory Infection Stated Complaint: Sore Throat Time Seen by Provider: 12/11/24 10:34 Source: patient Mode of arrival: ambulatory Limitations: no limitations History of Present Illness HPI Narrative: 28-year-old female presents with complaint sore throat, headache, fatigue. Symptoms for 2-3 days. Pain worse when swallowing. Denies nausea vomiting diarrhea. No strep throat exposure. All systems reviewed and negative except as noted above. Related Data Home Medications ?Medication ?Instructions ?Recorded ?Confirmed ?Last Taken ?Type cariprazine 1.5 mg capsule 1.5 mg PO Q24H 09/01/24 09/01/24 Unknown History (Vraylar) hydroxyzine HCl 10 mg tablet 10 mg PO DAILY 09/01/24 09/01/24 Unknown History pantoprazole 40 mg tablet,delayed 40 mg PO DAILY 09/01/24 09/01/24 Unknown History release albuterol sulfate 90 mcg/actuation inhalation 10/09/24 Unknown History aerosol inhaler budesonide-formoterol HFA 160 inhalation 10/09/24 Unknown History mcg-4.5 mcg/actuation aerosol inhaler (Symbicort) cetirizine 10 mg tablet mg 10/09/24 Unknown History etonogestrel subdermal 10/09/24 Unknown History Allergies Allergy/AdvReac Type Severity Reaction Status Date / Time amoxicillin (From Augmentin) Allergy Other Verified 10/09/24 10:06 clavulanic acid (From Allergy Other Verified 10/09/24 10:06 Augmentin) Penicillins Allergy Other Verified 10/09/24 10:06 enoxaparin (From Lovenox) AdvReac Rash Verified 10/09/24 10:06 Review of Systems Review of Systems: CONSTITUTIONAL: Denies fever, chills, or sweats. Reports fatigue. EYES: Denies visual changes, redness, or discharge. ENT: Denies rhinorrhea, congestion. Reports sore throat. Denies otalgia. CARDIOVASCULAR: Denies chest pain, palpitations, or edema. RESPIRATORY: Denies cough or dyspnea. GASTROINTESTINAL: Denies abdominal pain, nausea, vomiting, or diarrhea. GENITOURINARY: Denies dysuria or hematuria. SKIN: Denies rash or itching. MUSCULOSKELETAL: Denies back pain, joint pain, or myalgia. NEUROLOGIC: Denies headache, numbness, or weakness. PSYCHIATRIC: Denies anxiety or depression. All other systems reviewed are negative, except as documented in HPI. [facility] Past Medical History Medical History Asthma delivery delivered History of depression Surgical History Surgical History History of sleeve gastrectomy Family History Family History Other Patient denies significant medical history Social History Social History Smoking status: Never smoker Second hand tobacco smoke exposure: No Substance use: never Lack of Transportation: No Lack of Food: Never True Current Housing: I Have Housing Concerned About Future Housing: No Difficulty Paying Gas/Electric Bills: No Difficulty Paying for Meds: No Currently Unemployed: No Education: Grade School Difficulty w/ Childcare or Family Care: No Spiritual care concerns: No Comments At time of signature, agree with nursing past medical, surgical, social and family history. There is no relevant family history pertinent to the presenting complaint. Exam Narrative: GENERAL: This is a well-nourished, well-developed patient, in no apparent distress. HEAD: normocephalic, atraumatic. EYES: PERRL. Sclera clear/white. Vision is grossly intact. EARS: External ears normal, auditory canals clear and without drainage, TMs normal without perforation. Hearing grossly intact. NOSE: External nose normal with no obvious nasal discharge, nares without redness, no rhinorrhea. THROAT: Mucous membranes moist, mild erythema without swelling, exudates. Tonsils normal bilaterally. NECK: Neck supple, non-tender without lymphadenopathy, masses or thyromegaly. CARDIOVASCULAR: Regular rate and rhythm without murmurs, gallops, or rubs. RESPIRATORY: Clear to auscultation. Breath sounds equal bilaterally. No wheezes, rales, or rhonchi. SKIN: warm, Dry, intact with no suspicious lesions or rash, good texture and turgor. NEURO: awake, alert, and oriented to person, place and time. There were no obvious focal neurologic abnormalities. EXTREMITIES: No joint tenderness, effusion, or edema noted. Course Course Level of Care: Express Care Visit Vital Signs Vital signs: Vital Signs Temperature 36.6 C 12/11/24 10:00 Pulse Rate 67 12/11/24 10:00 Respiratory Rate 18 12/11/24 10:00 Blood Pressure 111/71 12/11/24 10:00 Pulse Oximetry 98 12/11/24 10:00 Oxygen Delivery Room Air 12/11/24 10:00 Temperature 36.6 C 12/11/24 10:00 Pulse Rate 67 12/11/24 10:00 Respiratory Rate 18 12/11/24 10:00 Blood Pressure 111/71 12/11/24 10:00 Pulse Oximetry 98 12/11/24 10:00 Oxygen Delivery Room Air 12/11/24 10:00 Reviewed MDM - URI/Sore Throat MDM Narrative Medical decision making narrative: Rapid strep negative. Culture ordered. Will wait for culture results prior to treating with antibiotics. Recommend [id number] pain medications to treat viral symptoms. Patient is well-appearing, nontoxic. Agrees with plan of care. Differential Diagnosis Differential diagnosis: Likely upper respiratory infection, viral infection and pharyngitis Lab Data Labs: Lab Results 12/11/24 12/11/24 Range/Units 10:01 10:56 POC SARS CoV-2 Ag Negative (Negative) POC Grp A Strep Screen Negative (Negative) Discharge Plan Discharge Clinical Impression: Acute viral pharyngitis Patient Disposition: Home Condition: Stable Instructions: Pharyngitis (ED) Additional Instructions: Your strep and covid test were negative. A strep culture was ordered and results will take 24-48 hours. If your strep culture is positive we will call you at that time and prescribed an antibiotic. Take ibuprofen or tylenol every 6 to 8 hours as needed for pain/fever. Drink at least 64 oz of water a day. Follow-up with your primary care physician if symptoms are not improving. Patient Language: Bulgarian Prescriptions: No Action cetirizine 10 mg tablet albuterol sulfate 90 mcg/actuation HFA aerosol inhaler INHALATION budesonide-formoterol [Symbicort] 160-4.5 mcg/actuation HFA aerosol inhaler INHALATION etonogestrel [Nexplanon] subdermal sulfamethoxazole-trimethoprim 800-160 mg tablet 1 tablet PO Q12H 5 Days Qty: 10 0RF hydroxyzine HCl 10 mg tablet 10 mg PO DAILY pantoprazole 40 mg tablet,delayed release (DR/EC) 40 mg PO DAILY Vraylar 1.5 mg capsule 1.5 mg PO Q24H escitalopram oxalate 10 mg Tablet 20 mg PO QHS Qty: 30 4RF Follow-up/Referrals: Maximiliano,Jessica Paige, GROUP RESERVATIONS COORDINATOR [Primary Care Provider] - Time of Disposition: 10:59
[2024-12-11 10:37] LABS: EDSTREPNEGPOS1 Negative (Negative)
[2024-12-11 10:58] LABS: EDCOVIDSCREEN Negative (Negative)
== END 2024-12-11 11:05 | disposition home or self-care (01) ==
PROVIDERS: Emergency Provider Nurse Practitioner Family
DX: J02.8 Acute pharyngitis due to other specified organisms (principal); Z20.822 Contact with and (suspected) exposure to COVID-19; J45.909 Unspecified asthma, uncomplicated; F32.A Depression, unspecified; Z98.84 Bariatric surgery status
CPT/HCPCS: 87081; 87426; 87880; 99213; G0463

== ENCOUNTER 2025-01-23 08:46 | Emergency (ER) | payer OTHER, SELFPAY ==
[2025-01-23 09:18] VITALS: BP 100/66; PULSE 83; RESP 16; TEMP 36.5; O2SAT 98
--- NOTE | 2025-01-23 09:37 | ED.GENADULT ---
HPI - General Adult General Chief complaint: Upper Respiratory Infection Stated complaint: Congestion/Cough/Sore Throat/Headache Time Seen by Provider: 01/23/25 09:38 Source: patient, RN notes reviewed and old records reviewed Mode of arrival: ambulatory Limitations: no limitations History of Present Illness HPI narrative: 29-year-old female presents to the [facility] with chest congestion, sore throat, cough and headache that started Wednesday night, day and half ago. Has taken Tylenol and ibuprofen. No other medications taken. Denies any fevers. Denies chest pain. Onset (ago): day(s) (1.5) Related Data Home Medications ?Medication ?Instructions ?Recorded ?Confirmed ?Last Taken ?Type cariprazine 1.5 mg capsule 1.5 mg PO Q24H 09/01/24 09/01/24 Unknown History (Vraylar) hydroxyzine HCl 10 mg tablet 10 mg PO DAILY 09/01/24 09/01/24 Unknown History pantoprazole 40 mg tablet,delayed 40 mg PO DAILY 09/01/24 09/01/24 Unknown History release albuterol sulfate 90 mcg/actuation inhalation 10/09/24 Unknown History aerosol inhaler budesonide-formoterol HFA 160 inhalation 10/09/24 Unknown History mcg-4.5 mcg/actuation aerosol inhaler (Symbicort) cetirizine 10 mg tablet mg 10/09/24 Unknown History etonogestrel subdermal 10/09/24 Unknown History Allergies Allergy/AdvReac Type Severity Reaction Status Date / Time amoxicillin (From Augmentin) Allergy Other Verified 01/23/25 10:20 clavulanic acid (From Allergy Other Verified 01/23/25 10:20 Augmentin) Penicillins Allergy Other Verified 01/23/25 10:20 enoxaparin (From Lovenox) AdvReac Rash Verified 01/23/25 10:20 Review of Systems Review of Systems: All systems reviewed & are unremarkable except as noted in HPI and below Constitutional: Constitutional: Reports no additional constitutional complaints ENT: Reports as per HPI and Reports sore throat Cardiovascular: Cardiovascular: Reports no additional cardiovascular complaints, Denies chest pain and Denies dyspnea Respiratory: Respiratory: Reports as per HPI, Reports chest congestion, Reports cough and Denies dyspnea Musculoskeletal: Musculoskeletal: Reports no additional musculoskeletal complaints Integumentary/Breasts: Skin/Breast: Reports system reviewed and no additional complaints, except as docu [facility] Past Medical History Medical History Asthma delivery delivered History of depression Surgical History Surgical History History of sleeve gastrectomy Family History Family History Other Patient denies significant medical history Social History Social History Smoking status: Never smoker Second hand tobacco smoke exposure: No Substance use: never Lack of Transportation: No Lack of Food: Never True Current Housing: I Have Housing Concerned About Future Housing: No Difficulty Paying Gas/Electric Bills: No Difficulty Paying for Meds: No Currently Unemployed: No Education: Grade School Difficulty w/ Childcare or Family Care: No Spiritual care concerns: No Comments At the time of my signature, I reviewed and agree with the nursing past medical, surgical, social, and family history. There is no relevant family history pertinent to the patient complaint. Exam Const: General: cooperative, healthy appearing, comfortable, no acute distress, well developed, alert and well nourished Nutritional Appearance: well nourished Orientation/consciousness: patient oriented x3 Limitations: no limitations HENMT: Head: normal to inspection Ears: hearing grossly normal bilaterally, external ears normal, TM's normal bilaterally, EAC's normal, mastoids normal and no periauricular adenopathy Mouth: Yes Normal oral and palatal mucosa present, Yes lip normal, Yes tongue normal and Yes moist mucous membranes Throat: posterior oropharynx normal, uvula midline and no uvular edema Eyes: General: appearance normal, both eyes and all related structures Alignment and Position: alignment normal Neck: Neck: normal visual inspection, full ROM, no lymphadenopathy and no meningeal signs Chest: Chest palpation & inspection: normal inspection of the chest Resp: Effort & Inspection: normal respiratory effort and able to speak in complete sentences Auscultation: no crackles, no rales, no rhonchi and wheezes (Right lower lobe expiratory, mild wheeze) Cardio: Rate: regular rate Skin: General skin exam: normal color and no rashes or lesions noted Neuro: General: patient oriented x3, gait normal, moves all extremities and no meningeal signs Cognition (Neuro): normal cognition Speech: normal speech Gait exam (Neuro): Normal gait present Extrem: General: normal to inspection, full ROM, capillary refill normal and normal gait Psych: Appearance: grossly normal and well kempt Mental Status: mental status grossly normal Speech and movement: Normal speech and movement present and Clear speech present Affect: normal affect Attitude: cooperative Course Course Level of Care: Express Care Visit Vital Signs Vital signs: Vital Signs Temperature 97.7 F 01/23/25 09:18 Pulse Rate 83 01/23/25 09:18 Respiratory Rate 16 01/23/25 09:18 Blood Pressure 100/66 01/23/25 09:18 Pulse Oximetry 98 01/23/25 09:18 Temperature 97.7 F 01/23/25 09:18 Pulse Rate 83 01/23/25 09:18 Respiratory Rate 16 01/23/25 09:18 Blood Pressure 100/66 01/23/25 09:18 Pulse Oximetry 98 01/23/25 09:18 Reviewed Medical Decision Making MDM Narrative Medical decision making narrative: Patient sitting comfortably in exam room. Patient is nontoxic, vitals stable. Patient presents with day and half of symptoms. Patient's flu, COVID, strep were negative. Slight wheeze noted to the right lower lobe, offered chest x-ray which she is declining at this time. Will prescribe albuterol. Patient is appropriate for outpatient treatment with [id number] products Discharge instructions reviewed with patient, as well as provided in writing per nursing staff. The instructions also include specific and strict return/GO TO THE ER as well as f/u information. All questions have been answered, and the patient deny any further questions with discharge and discharge plan. Some parts of this dictation were generated by voice recognition software and may contain typographical and/or grammatical inaccuracies. Differential Diagnosis Differential Diagnosis: Bronchitis, pneumonia, flu, COVID, strep Medical Records Medical records reviewed: Yes I reviewed the external patient's medical records. Vital Signs Vital Signs: Vital Signs Temperature 97.7 F 01/23/25 09:18 Pulse Rate 83 01/23/25 09:18 Respiratory Rate 16 01/23/25 09:18 Blood Pressure 100/66 01/23/25 09:18 Pulse Oximetry 98 01/23/25 09:18 Temperature 97.7 F 01/23/25 09:18 Pulse Rate 83 01/23/25 09:18 Respiratory Rate 16 01/23/25 09:18 Blood Pressure 100/66 01/23/25 09:18 Pulse Oximetry 98 01/23/25 09:18 Reviewed Lab Data Lab results reviewed: Yes I reviewed the patient's lab results. Labs: Lab Results 01/23/25 Range/Units 09:28 POC Influenza A Ag Negative (Negative) POC Influenza B Ag Negative (Negative) POC SARS CoV-2 Ag Negative (Negative) POC Grp A Strep Screen Negative (Negative) Reviewed Critical Care Time Critical Care Time Critical Care Time: No Discharge Plan Discharge Clinical Impression: Bronchitis Upper respiratory infection Qualifiers: URI type: unspecified viral URI Qualified Code(s): J06.9 - Acute upper respiratory infection, unspecified Pharyngitis Qualifiers: Pharyngitis/tonsillitis etiology: unspecified etiology Qualified Code(s): J02.9 - Acute pharyngitis, unspecified Patient Disposition: Home Condition: Stable Instructions: Acute Bronchitis (ED), Viral Syndrome (ED) Additional Instructions: Your rapid strep swab was negative today at [facility]. A throat culture will be sent to the laboratory for further testing. If the test is positive, you will receive a phone call within 48 hours and an appropriate antibiotic will be initiated at that time. Your rapid COVID test were negative Your rapid flu test was negative Your symptoms are likely due to a viral illness, which is not treated with antibiotics. Typically viral infections last 7-10 days, can linger for couple of weeks. It is very important to treat your symptoms. Drink plenty of water, Gatorade, Pedialyte, ice pops or Jell-O. -Alternate Tylenol and Motrin per package directions for fever or pain. You can alternate every 4 hours -Antihistamine medication such as Zyrtec/Claritin/Elizabeth during the day can help improve symptoms. -doing daily nasal irrigations can help relieve pressure your sinuses. Things like a Neti pot -Use Flonase twice a day for 5 days then daily to help reduce the inflammation and dry up your sinuses. -You can also use Mucinex. Be sure to drink plenty of water with this medication at least 8 ounces with every dose and it is important to drink 8 to 10 glasses of water per day. Water is a natural decongestant -Eat and drink things that are easy to swallow, like tea or soup, or popsicles. -Oral rinses such as: Salt water gargles and/or may use topical anesthetic (eg. Chloraseptic spray) or lozenges to relieve dryness or throat pain). -Frequent hand washing or hand sheet metal assembler is one of the best ways to prevent spread of infection. -Using a vaporizer or humidifier at night will also help thin secretions and help with coughing up phlegm. -Follow up with primary care provider in 7-10 days if condition is not improving - For new or worsening symptoms go directly to the nearest ER Patient Language: Malian Prescriptions: New albuterol sulfate 90 mcg/actuation HFA aerosol inhaler 2 puff inhalation QID PRN (Reason: shortness of breath or wheezing) Qty: 6.7 0RF (DME) Aerochamber MV Spacer See Rx Instructions .Route Qty: 1 0RF Rx Instructions: As directed No Action cetirizine 10 mg tablet albuterol sulfate 90 mcg/actuation HFA aerosol inhaler INHALATION budesonide-formoterol [Symbicort] 160-4.5 mcg/actuation HFA aerosol inhaler INHALATION etonogestrel [Nexplanon] subdermal hydroxyzine HCl 10 mg tablet 10 mg PO DAILY pantoprazole 40 mg tablet,delayed release (DR/EC) 40 mg PO DAILY Vraylar 1.5 mg capsule 1.5 mg PO Q24H escitalopram oxalate 10 mg Tablet 20 mg PO QHS Qty: 30 4RF Follow-up/Referrals: Maximiliano,Jessica Paige, UNEMPLOYMENT INSURANCE DIRECTOR [Primary Care Provider, Unknown] - 2 Weeks Clinical Impression: Upper respiratory infection; Bronchitis Time of Disposition: 09:52
[2025-01-23 09:59] LABS: EDCOVIDSCREEN Negative (Negative); EDINFLUASCREEN Negative (Negative); EDINFLUBSCREEN Negative (Negative); EDSTREPNEGPOS1 Negative (Negative)
== END 2025-01-23 10:17 | disposition home or self-care (01) ==
PROVIDERS: Emergency Provider Nurse Practitioner
DX: J40 Bronchitis, not specified as acute or chronic (principal); J06.9 Acute upper respiratory infection, unspecified; J02.9 Acute pharyngitis, unspecified; Z20.822 Contact with and (suspected) exposure to COVID-19; J45.909 Unspecified asthma, uncomplicated; Z98.84 Bariatric surgery status
CPT/HCPCS: 87081; 87426; 87804; 87880; 99213; G0463

== ENCOUNTER 2025-04-18 11:06 | Emergency (ER) | payer OTHER, SELFPAY ==
[2025-04-18 11:14] VITALS: BP 106/62; PULSE 84; RESP 16; TEMP 36.3; O2SAT 98
[2025-04-18 11:36] LABS: EDSTREPNEGPOS1 Negative (Negative)
--- NOTE | 2025-04-18 12:11 | ED_ITS ---
HPI - URI/Sore Throat General Chief Complaint: Upper Respiratory Infection Stated Complaint: URI symptoms Time Seen by Provider: 04/18/25 11:50 Source: patient and RN notes reviewed Mode of arrival: ambulatory Limitations: no limitations History of Present Illness HPI Narrative: 29-year-old female presents [facility] complaining of sore throat, cough, earache, fevers, body aches, chills, and congestion for 2 days. Patient denies any other upper respiratory symptoms, chest pain, difficulty breathing, wheezing, nausea vomiting, diarrhea, abdominal pain, or is symptoms. Patient taking Tylenol Motrin help with symptoms. Patient reports a history of anxiety and depression. Related Data Home Medications ?Medication ?Instructions ?Recorded ?Confirmed ?Last Taken ?Type cariprazine 1.5 mg capsule 1.5 mg PO Q24H 09/01/24 Unknown History ([facility]) hydroxyzine HCl 10 mg tablet 10 mg PO DAILY 09/01/24 1 06/18/24 Unknown History pantoprazole 40 mg tablet,delayed 40 mg PO DAILY 09/0104/18/25 Unknown History release albuterol sulfate 90 mcg/actuation inhalation 10/09/24 Unknown History aerosol inhaler budesonide-formoterol HFA 160 1 puff inhalation DAILY 10/09/24 04/18/25 Unknown History mcg-4.5 mcg/actuation aerosol inhaler (Symbicort) cetirizine 10 mg tablet 10 mg PO DAILY 10/09/2403/25 Unknown History etonogestrel 1 implant subdermal .year 04/18/25 Unknown History Allergies Allergy/AdvReac Type Severity Reaction Status Date / Time amoxicillin (From Augmentin) Allergy Other Verified 04/18/25 11:16 clavulanic acid (From Allergy Other Verified 04/18/25 11:16 Augmentin) Penicillins Allergy Other Verified 04/18/25 11:16 enoxaparin (From Lovenox) AdvReac Rash Verified 04/18/25 11:16 Review of Systems Review of Systems: CONSTITUTIONAL: Positive for fever, chills, body aches. Negative for sweats. EYES: Denies visual changes, redness, or discharge. ENT: Positive for congestion, sore throat, or otalgia. Urine negative for rhinorrhea CARDIOVASCULAR: Denies chest pain, palpitations, or edema. RESPIRATORY: Denies cough or dyspnea. GASTROINTESTINAL: Denies abdominal pain, nausea, vomiting, or diarrhea. GENITOURINARY: Denies dysuria or hematuria. SKIN: Denies rash or itching. MUSCULOSKELETAL: Denies back pain, joint pain, or myalgia. NEUROLOGIC: Denies headache, numbness, or weakness. PSYCHIATRIC: Denies anxiety or depression. All other systems reviewed are negative, except as documented in HPI. [facility] Past Medical History Medical History Asthma delivery delivered History of depression Surgical History Surgical History History of sleeve gastrectomy Family History Family History Other Patient denies significant medical history Social History Social History Smoking status: Never smoker Second hand tobacco smoke exposure: No Substance use: never Lack of Transportation: No Lack of Food: Never True Current Housing: I Have Housing Concerned About Future Housing: No Difficulty Paying Gas/Electric Bills: No Difficulty Paying for Meds: No Currently Unemployed: No Education: Grade School Difficulty w/ Childcare or Family Care: No Spiritual care concerns: No Comments At the time of my signature, I reviewed and agree with the nursing past medical, surgical, social, and family history. There is no relevant family history pertinent to the patient complaint. Exam Narrative: GENERAL: This is a well-nourished, well-developed adult, in no apparent distress. They are non ill-appearing, nontoxic appearing. HEAD: normocephalic, atraumatic. EYES: Sclera clear/white. Conjunctiva normal. Vision is grossly intact. Extraocular movements intact EARS: External ears normal, auditory canals clear and without drainage, left TMs normal without perforation. Right TM with effusion present, Otherwise normal. No perforation. Hearing grossly intact. NOSE: External nose normal with no obvious nasal discharge, nasal turbinates erythematous, no rhinorrhea. THROAT: Mucous membranes moist, posterior pharynx erythema without swelling. Postnasal drip present. Uvula midline. NECK: Neck supple, non-tender without lymphadenopathy, masses or thyromegaly. CARDIOVASCULAR: Regular rate and rhythm without murmurs, gallops, or rubs. RESPIRATORY: Clear to auscultation. Breath sounds equal bilaterally. No wheezes, rales, or rhonchi. SKIN: warm, Dry, intact with no suspicious lesions or rash, good texture and turgor. NEURO: awake, alert, and oriented to person, place and time. There were no obvious focal neurologic abnormalities. EXTREMITIES: No joint tenderness, effusion, or edema noted. BACK: Nontender without deformity. Course Course Emergency Course: Portions of this record may have been created with voice recognition software Level of Care: Express Care Visit Vital Signs Vital signs: Vital Signs Temperature 97.3 F L 04/18/25 11:14 Pulse Rate 84 04/18/25 11:14 Respiratory Rate 16 04/18/25 11:14 Blood Pressure 106/62 04/18/25 11:14 Pulse Oximetry 98 04/18/25 11:14 Oxygen Delivery Room Air 04/18/25 11:14 Temperature 97.3 F L 04/18/25 11:14 Pulse Rate 84 04/18/25 11:14 Respiratory Rate 16 04/18/25 11:14 Blood Pressure 106/62 04/18/25 11:14 Pulse Oximetry 98 04/18/25 11:14 Oxygen Delivery Room Air 04/18/25 11:14 Reviewed MDM - URI/Sore Throat MDM Narrative Medical decision making narrative: Rapid strep negative. A throat culture is pending. Symptoms likely viral in etiology. Given patient's severity of pain her sore throat will give her 1 time dose of dexamethasone. Discussed physical exam findings. Advised supportive measures and signs/symptoms to go to the ER. Pt is appropriate for outpt treatment and f/u. Differential Diagnosis Differential diagnosis: Likely upper respiratory infection, otitis media, sinusitis, viral infection and pharyngitis Lab Data Attestation: I reviewed the patient's lab results. Labs: Lab Results 04/18/25 Range/Units 11:31 POC Grp A Strep Screen Negative (Negative) Critical Care Time Critical Care Time Critical Care Time: No Discharge Plan Discharge Clinical Impression: Upper respiratory infection Qualifiers: URI type: unspecified viral URI Qualified Code(s): J06.9 - Acute upper respiratory infection, unspecified Patient Disposition: Home Condition: Stable Instructions: Upper Respiratory Infection (ED) Additional Instructions: Your rapid strep swab was negative today at [facility]. Take dexamethasone as directed. You will be notified in a few days if the culture comes back positive for strep, and appropriate antibiotics will be called in for you at that time. Your symptoms are likely due to a viral illness, which is not treated with antibiotics. Viral symptoms can be present for up to 10-14 days. Take Tylenol or Motrin as needed for fever or pain. Rest and stay hydrated. Follow up with your PCP in 3-5 days if symptoms are not improving. Go to the ER immediately if you developed chest pains, nausea, vomiting difficulty breathing or swallowing, or any serious concerns. Patient Language: Kinyarwanda Prescriptions: New dexamethasone 6 mg tablet 6 mg PO ONCE 1 Days Qty: 1 0RF No Action cetirizine 10 mg tablet 10 mg PO DAILY albuterol sulfate 90 mcg/actuation HFA aerosol inhaler INHALATION budesonide-formoterol [Symbicort] 160-4.5 mcg/actuation HFA aerosol inhaler 1 puff INHALATION DAILY etonogestrel [Nexplanon] 1 implant subdermal .year hydroxyzine HCl 10 mg tablet 10 mg PO DAILY pantoprazole 40 mg tablet,delayed release (DR/EC) 40 mg PO DAILY Vraylar 1.5 mg capsule 1.5 mg PO Q24H albuterol sulfate 90 mcg/actuation HFA aerosol inhaler 2 puff inhalation QID PRN (Reason: shortness of breath or wheezing) Qty: 6.7 0RF (DME) Aerochamber MV Spacer See Rx Instructions .Route Qty: 1 0RF Rx Instructions: As directed escitalopram oxalate 10 mg Tablet 20 mg PO QHS Qty: 30 4RF Follow-up/Referrals: Maximiliano,Jessica Paige, [employer] [facility] [Primary Care Provider, Unknown] Stand Alone Forms: Work/School Release IP Time of Disposition: 12:07
== END 2025-04-18 12:13 | disposition home or self-care (01) ==
DX: J06.9 Acute upper respiratory infection, unspecified (principal); Z79.899 Other long term (current) drug therapy
CPT/HCPCS: 87081; 87880; 99213; G0463